=== PATIENT | male | born 1980 | race Two or more races ===

== ENCOUNTER → 2018-09-04 | Outpatient (CLI) | payer OTHER ==
--- NOTE | 2018-09-04 18:01 | REP ---
TRIPLE PHASE BONE SCAN, LOWER LEGS: Following the intravenous administration of 21.7 millicuries of Technetium 99M MDP, patient's who body was imaged in the flow phase in the anterior and posterior projections, showing symmetrical blood flow. Immediate blood pool and 4 hour delayed images are performed of the lower legs in various projections. Small focal increased blood pooling and increased delayed activity is seen at the posterior margin of the right calcaneus. I suspect this represents mild stress related changes at the insertion of the Achilles tendon. There is mild linear uptake in the tibial cortex bilaterally in a fairly symmetrical pattern suggesting bilateral stress periostitis or broderick splints. No focal stress fracture is seen. IMPRESSION: Linear increased uptake along the tibial shafts bilaterally suggests stress periositis. Focal increased uptake in the posterior margin of the right calcaneus suggests stress related changes at the insertion of the Achilles tendon. No evidence of stress fracture. Electronically Signed by Austin Lou MD 09/05/2018 12:27 P
== END ==
LOC: M RAD 08:42
PROVIDERS: ATTEND Physical Therapist
DX: M79.662 Pain in left lower leg (principal)
CPT/HCPCS: 78315; A9503

== ENCOUNTER 2018-12-31 20:23 | Emergency (ER) | payer OTHER ==
[~2018-12-31] VITALS: Ht 182.9 cm; Wt 104.5 kg
[2018-12-31 20:23] VITALS: BP 134/81
[2018-12-31] MEDS ORDERED: BENZONATATE 100 MG CAP PO ONE (21:15)
[2018-12-31] MEDS ORDERED: ZITHTAB PO (21:53)
[2018-12-31] MEDS ORDERED: BENZ200C70 PO (21:53)
[2018-12-31] MEDS ORDERED: NAPR-837 PO (21:57)
[2018-12-31] MEDS ORDERED: AZITHROMYCIN 250 MG TAB PO ONE (22:00)
--- NOTE | 2019-01-01 08:09 | REP ---
Chest x-ray: Two views. History: Cough and fever . Comparison study: No comparison study . Findings: The lungs are well inflated and free of infiltrate. The pleural angles are sharp. The heart size is normal. Pulmonary vasculature is not increased. No significant bony abnormality is seen. Impression: Negative chest x-ray. Electronically Signed by Erick Daley MD 01/01/2019 08:00 A
== END 2018-12-31 22:02 | disposition home or self-care (01) ==
LOC: M ED 20:23
DX: J20.9 Acute bronchitis, unspecified (principal); Z88.0 Allergy status to penicillin

== ENCOUNTER 2020-03-25 16:25 | Emergency (ER) | payer OTHER ==
[~2020-03-25] VITALS: Ht 182.9 cm; Wt 119.0 kg
[~2020-03-25 16:25] MED LIST: BENZ200C70 PO; NAPR-837 PO; ZITHTAB PO
[2020-03-25 16:26] VITALS: BP 133/87
[2020-03-25] MEDS ORDERED: SYNT150T PO (16:36)
[2020-03-25] MEDS ORDERED: ATOR1TAB21 PO (16:36)
[2020-03-25] MEDS ORDERED: DERMABOND TOPICAL SKIN ADHESIVE TOP ONE (17:15)
[2020-03-25] MEDS ORDERED: LIDOCAINE W/EPINEPHRINE 1% 20ML VIAL As Ordered ONE (17:18)
[2020-03-25] MEDS ORDERED: LIDOCAINE W/EPINEPHRINE 1% 20ML VIAL SC ONE (17:30)
== END 2020-03-25 17:39 | disposition home or self-care (01) ==
LOC: M ED 16:25
DX: S81.812A Laceration without foreign body, left lower leg, initial encounter (principal); W27.0XXA Contact with workbench tool, initial encounter; Y92.099 Unspecified place in other non-institutional residence as the place of occurrence of the external cause; Y93.9 Activity, unspecified; Y99.9 Unspecified external cause status; E03.9 Hypothyroidism, unspecified; Z79.899 Other long term (current) drug therapy; Z88.0 Allergy status to penicillin; Z91.012 Allergy to eggs

== ENCOUNTER 2020-05-09 08:30 | Day surgery (SDC) | payer OTHER ==
[~2020-05-09] VITALS: Ht 182.9 cm; Wt 121.1 kg
[~2020-05-09 08:30] MED LIST changes: +ATOR1TAB21 PO; +LEVO250T12 PO; +NS 1,000 ML IV ONE; +SYNT125T PO; +SYNT150T PO
[2020-05-09] MEDS ORDERED: propofoL 200 MG/20 ML VIAL As Ordered ONE ×2 (10:11→10:12)
[2020-05-09] MEDS ORDERED: LIDOCAINE 2% 100MG/5ML SDV (FOR ANES.) As Ordered ONE (10:12)
--- NOTE | 2020-05-09 10:16 | ROOR ---
Patient Name: Juan Daniel Boss Procedure Date: 05/09/2020 9:56 AM Date of : 1980 Age: 39 Room: [facility] Gender: Male Note Status: Finalized Procedure: Total Colonoscopy to Cecum Indications: Screening in patient at increased risk: Colorectal cancer in father before age 60 Providers: Kip Pelayo MD Referring MD: DOUG GAVIRIA MD Requesting Provider: Medicines: Monitored Anesthesia Care Complications: No immediate complications. Procedure: Pre-Anesthesia Assessment: - The heart rate, respiratory rate, oxygen saturations, blood pressure, adequacy of pulmonary ventilation, and response to care were monitored throughout the procedure. The Colonoscope was introduced through the anus and advanced to the cecum, identified by appendiceal orifice and ileocecal valve. The colonoscopy was performed without difficulty. The patient tolerated the procedure well. The quality of the bowel preparation was good. Findings: The perianal and digital rectal examinations were normal. Non-bleeding internal hemorrhoids were found during retroflexion. The hemorrhoids were small and Grade I (internal hemorrhoids that do not prolapse). No other significant abnormalities were identified in a careful examination of the remainder of the colon. The exam was otherwise without abnormality on direct and retroflexion views. Impression: - Non-bleeding internal hemorrhoids. - The examination was otherwise normal on direct and retroflexion views. - No specimens collected. - The exam was otherwise normal to the cecum. Recommendation: - Patient has a contact number available for emergencies. The signs and symptoms of potential delayed complications were discussed with the patient. Return to normal activities tomorrow. Written discharge instructions were provided to the patient. - High fiber diet. - Discharge patient to home. - Continue present medications. - Repeat colonoscopy in 5 years for screening purposes. - Return to referring physician. - The findings and recommendations were discussed with the patient. Procedure Code(s): --- Professional --- G0105, Colorectal cancer screening; colonoscopy on individual at high risk Diagnosis Code(s): --- Professional --- Z80.0, Family history of malignant neoplasm of digestive organs K64.0, First degree hemorrhoids CPT copyright 2019 [employer]. All rights reserved. The codes documented in this report are preliminary and upon doctor's assistant review may be revised to meet current compliance requirements. Kip Pelayo MD Kip Pelayo MD 05/09/2020 10:16:41 AM Electronically signed by Kip Pelayo MD Number of Addenda: 0 Note Initiated On: 05/09/2020 9:56 AM Estimated Blood Loss: Estimated blood loss: none.
[2020-05-09 10:40] VITALS: BP 125/69
== END 2020-05-09 11:25 | disposition home or self-care (01) ==
LOC: M OPP 08:30
PROVIDERS: ATTEND Internal Medicine Gastroenterology
DX: Z12.11 Encounter for screening for malignant neoplasm of colon (principal); Z80.0 Family history of malignant neoplasm of digestive organs; K64.0 First degree hemorrhoids; E03.9 Hypothyroidism, unspecified; F17.220 Nicotine dependence, chewing tobacco, uncomplicated; Z88.0 Allergy status to penicillin; Z88.1 Allergy status to other antibiotic agents; Z91.012 Allergy to eggs; Z91.041 Radiographic dye allergy status; Z79.899 Other long term (current) drug therapy

== ENCOUNTER 2020-07-27 19:19 | Emergency (ER) | payer OTHER ==
[~2020-07-27] VITALS: Ht 182.9 cm; Wt 120.4 kg
[~2020-07-27 19:19] MED LIST changes: -NS 1,000 ML IV ONE
[2020-07-27 19:20] VITALS: BP 140/86
[2020-07-27] MEDS ORDERED: IBUP200T43 PO (19:28)
[2020-07-27] MEDS ORDERED: PERC5TAB12 PO (20:20)
[2020-07-27] MEDS ORDERED: CEPHALEXIN 500 MG CAP PO ONE (20:20)
[2020-07-27] MEDS ORDERED: OXYCODONE/APAP 5MG/325MG(BULK FOR ED) 1 TABLET PO ONE (20:20)
[2020-07-27] MEDS ORDERED: CEPH500T PO (20:20)
[2020-07-27] MEDS ORDERED: ACET1TAB16 PO (20:34)
--- NOTE | 2020-07-27 21:10 | REPVR ---
PROCEDURE INFORMATION: Exam: XR Right Toe(s) Exam date and time: 07/27/2020 8:02 PM Age: 40 years old Clinical indication: Pain; Toes; Right; Additional info: Dropped log on great toe TECHNIQUE: Imaging protocol: XR Right toes. Views: Minimum 2 views. COMPARISON: No relevant prior studies available. FINDINGS: Bones/joints: Comminuted fracture involving the distal tuft of the great toe with very slight displacement of fragments. Soft tissues: Soft tissue swelling of the great toe. IMPRESSION: 1. Comminuted fracturing of the distal tuft of the great toe with very slight displacement of fragments. 2. Soft tissue swelling of the great toe. Electronically signed by: Darrion Cordero On 07/27/2020 21:09:58 PM
== END 2020-07-27 21:04 | disposition home or self-care (01) ==
LOC: M ED 19:19
DX: S92.421B Displaced fracture of distal phalanx of right great toe, initial encounter for open fracture (principal); W20.0XXA Struck by falling object in cave-in, initial encounter; Y92.009 Unspecified place in unspecified non-institutional (private) residence as the place of occurrence of the external cause; Y93.89 Activity, other specified; Y99.8 Other external cause status

== ENCOUNTER 2020-08-06 13:49 | Day surgery (SDC) | payer OTHER ==
[~2020-08-06] VITALS: Ht 182.9 cm; Wt 118.4 kg
[2020-08-06] MEDS ORDERED: BUPIVACAINE/EPIN 0.5% 30 ML VIAL As Ordered ONE (15:08)
[2020-08-06] MEDS ORDERED: ONDANSETRON 4MG/2ML VIAL As Ordered ONE (15:12)
[2020-08-06] MEDS ORDERED: fentaNYL 100 MCG/2 ML INJECTION (J3010) As Ordered ONE (15:12)
[2020-08-06] MEDS ORDERED: LIDOCAINE 2% 100MG/5ML SDV (FOR ANES.) As Ordered ONE (15:12)
[2020-08-06] MEDS ORDERED: MIDAZOLAM INJ 2MG/2ML VIAL (J2250 PER 1MG) As Ordered ONE (15:12)
[2020-08-06] MEDS ORDERED: propofoL 200 MG/20 ML VIAL As Ordered ONE (15:12)
[2020-08-06] MEDS ORDERED: ACETAMINOPHEN 1000MG 100ML IV BTL (OFIRMEV) (J0131 PER 10MG) As Ordered ONE (15:12)
[2020-08-06] MEDS ORDERED: dexameTHASONE 4 MG/ML 1ML VIAL (J1100 PER 1MG) As Ordered ONE (15:12)
[2020-08-06] MEDS ORDERED: KETOROLAC 60MG 2ML VIAL As Ordered ONE (15:12)
[2020-08-06] MEDS ORDERED: LIDOCAINE 5% OINT 30GM TUBE As Ordered ONE (15:20)
[2020-08-06] MEDS ORDERED: BUPIVACAINE HCL 0.5% 10ML VIAL As Ordered ONE (15:36)
[2020-08-06] MEDS ORDERED: LIDOCAINE 1% MDV 20ML VIAL As Ordered ONE (15:36)
[2020-08-06] MEDS ORDERED: oxyCODONE 5MG TAB PO PRN (17:55)
[2020-08-06] MEDS ORDERED: LR 1,000 ML IV SCH ×2 (17:55)
[2020-08-06] MEDS ORDERED: ONDANSETRON 4MG/2ML VIAL IV PRN (17:55)
[2020-08-06] MEDS ORDERED: CIPROFLOXACIN 500MG TABLET PO ONE (18:00)
--- NOTE | 2020-08-06 18:05 | ROOPDOC ---
[facility] Report Of Operation Report of Operation DATE OF PROCEDURE: 08/06/20 PREPROCEDURE DIAGNOSES: Right first toe open fracture under nailbed: Distal tuft of phalanx fracture approximately 10 days old POSTPROCEDURE DIAGNOSES: As above, with disruption of nail bed PROCEDURE: Ring block applied to right first great toe at the level just distal to the metatarsal head Removal of right first toe nail Irrigation and debridement of open fracture Distal phalanx right first toe SURGEON: Kiran Coulter MD MUSIC SUPERVISOR: None ANESTHESIA: Sedation with ring block, local anesthetic ESTIMATED BLOOD LOSS: Approximately less than 5 mL COMPLICATIONS: 0 Known complications REMARKS: Of note, this open fracture of the right first toe Nailbed was referred by the emergency room to the clinic know on urgently. Subsequently the clinic appointment was approximately 10 days after the injury. Notably, the patient had a reaction to the antibiotic that was prescribed for him and he had not been taking antibiotics. Also of note, the patient had gone swimming yesterday after the bleeding from the nail bed proximally had ceased. All of these factors, but the patient had an increased risk for infection. DESCRIPTION OF PROCEDURE: The patient was brought into the operating room and after a surgical pause and surgical safety checklist was completed, sedation was initiated. The right foot was scrubbed with alcohol 2 and hydrogen peroxide followed by a ring block that was administered by myself. Approximately 9 mL of 1% lidocaine mixed with 0.5% Marcaine was injected in a ring block manner. The right foot was then scrubbed with Betadine soap and then Betadine paint. A sterile prep and drape was then applied. A Esmarch wrap was used as a tourniquet. This was applied, and a Ogilvie was then used to free up the edges of the nailbed. This started with the cuticle region and along the sides. The Ogilvie was then placed underneath the nailbed, which easily was elevated. The nailbed was then removed. Unhealthy regions of the cuticle tissue were then removed with a small snap. The Ogilvie was used to probe around the nailbed. There is no evidence of tunneling or otherwise abscess collection. Noted that there was an approximate 1.5 cm laceration of the nailbed down to the distal phalanx. The bone fragments were palpable at the site of the fracture. An 18-gauge syringe with normal sterile saline was introduced into this laceration in the nailbed and several syringes full of normal sterile saline were used to irrigate out the fracture site. There is no evidence of gross contamination or otherwise. Further irrigation occurred with the bulb syringe. Once the wound had been thoroughly irrigated, a 5. 0 Monocryl absorbable suture was used to approximate the nailbed edges together. Dermabond skin adhesive was applied to the laceration. The wound was painted with Betadine, followed by the application of a Xeroform, light gauze over the nailbed and surrounding. The Esmarch tourniquet was removed and there was no significant bleeding noted 4 x 4's were loosely placed in a circumferential manner. This was then loosely wrapped with Coban to secure the dressing. The patient was then taken to the recovery room in stable condition with no known complications. The patient will have one dose of the ciprofloxacin oral antibiotics in hospital due to his multiple allergies to antibiotics. He will also have oxycodone for p ain medication as well as senna for constipation. He was provided with instructions for dressing changes to be done twice daily and the appropriate number of supplies to bring him until Tuesday when he will be seen in the clinic for reassessment of the wound. I have provided him with the office numbers well. If he has any concerns. The patient will be discharged home when able. KIRAN COULTER MD August 06, 2020 18:05
[2020-08-06 20:30] VITALS: BP 126/58
== END 2020-08-06 20:38 | disposition home or self-care (01) ==
LOC: M SDC 13:49
PROVIDERS: ATTEND Orthopaedic Surgery Adult Reconstructive Orthopaedic Surgery
DX: S91.201A Unspecified open wound of right great toe with damage to nail, initial encounter (principal); S92.424B Nondisplaced fracture of distal phalanx of right great toe, initial encounter for open fracture; W22.8XXA Striking against or struck by other objects, initial encounter; Y92.89 Other specified places as the place of occurrence of the external cause; E03.9 Hypothyroidism, unspecified; Z85.47 Personal history of malignant neoplasm of testis; Z79.899 Other long term (current) drug therapy; Z91.041 Radiographic dye allergy status; Z88.0 Allergy status to penicillin; Z91.012 Allergy to eggs; Z91.018 Allergy to other foods
CPT/HCPCS: 11760; 64450; 73660; J0131; J1100; J1885; J2250; J2405; J3010; U0002

== ENCOUNTER → 2020-08-06 | Outpatient (CLI) | payer OTHER ==
[~2020-08-06] MED LIST changes: +ACET1TAB16 PO; +CEPH500T PO; +IBUP200T43 PO; +PERC5TAB12 PO
--- NOTE | 2020-08-06 09:27 | REP ---
INDICATION: F/U FX. COMPARISON: 05/09/2020 TECHNIQUE: AP, lateral, bilateral oblique views of the right 1st toe. FINDINGS: Nondisplaced crush injury to the terminal tuft of the distal phalanx is again noted and essentially unchanged. IMPRESSION: Relatively stable appearance to the distal phalanx fracture. <Electronically signed by Josafat Cano > 08/06/20 0951
== END ==
LOC: M SOG 09:02
PROVIDERS: ATTEND Orthopaedic Surgery Adult Reconstructive Orthopaedic Surgery
DX: M79.674 Pain in right toe(s) (principal)

== ENCOUNTER → 2020-08-14 | Outpatient (CLI) | payer OTHER ==
[2020-08-14 12:02] LABS: FREE T4 1.66 NG/DL (0.76-1.46); THYROID STIMULATING HORMONE < 0.005 uIU/ML (0.358-3.740)
== END ==
LOC: M PLALAB 08:56
PROVIDERS: ATTEND Nurse Practitioner Family
DX: E06.3 Autoimmune thyroiditis (principal)

== ENCOUNTER → 2020-09-08 | Outpatient (CLI) | payer OTHER ==
--- NOTE | 2020-09-08 22:06 | REP ---
INDICATION: F/U FX. COMPARISON: 08/06/2020 TECHNIQUE: AP, lateral, bilateral oblique views of the right 1st toe. FINDINGS: Fracture at the terminal tuft/tip of the distal phalanx is identified with callus formation consistent with healing process. IMPRESSION: Healing fracture. <Electronically signed by Josafat Cano > 09/08/20 [id number]
== END ==
LOC: M SOG 08:04
PROVIDERS: ATTEND Orthopaedic Surgery Adult Reconstructive Orthopaedic Surgery
DX: S92.421D Displaced fracture of distal phalanx of right great toe, subsequent encounter for fracture with routine healing (principal); W18.30XD Fall on same level, unspecified, subsequent encounter; Y92.009 Unspecified place in unspecified non-institutional (private) residence as the place of occurrence of the external cause

== ENCOUNTER → 2020-11-13 | Outpatient (CLI) | payer OTHER ==
[2020-11-13 12:05] LABS: FREE T4 1.07 NG/DL (0.76-1.46); THYROID STIMULATING HORMONE 0.061 uIU/ML (0.358-3.740)
== END ==
LOC: M PLALAB 08:19
PROVIDERS: ATTEND Internal Medicine Endocrinology, Diabetes & Metabolism
DX: E06.3 Autoimmune thyroiditis (principal)

== ENCOUNTER → 2020-12-11 | Outpatient (CLI) | payer OTHER ==
--- NOTE | 2020-12-11 11:18 | REP ---
INDICATION: PAIN IN RT TOE. COMPARISON: Comparison right great toe radiographs are from September 08, 2020. TECHNIQUE: AP and lateral views of the right great toe. FINDINGS: AP and lateral views of the right great toe demonstrate healing of the crush-type fracture fragments in the distal tuft of the great toe distal phalanx. There is minimal spurring at the 1st MTP joint. No acute bony abnormality. IMPRESSION: Distal tuft great toe fracture demonstrates healing. <Electronically signed by Panchito Daley > 12/11/20 111
== END ==
LOC: M SOG 10:46
PROVIDERS: ATTEND Orthopaedic Surgery Adult Reconstructive Orthopaedic Surgery
DX: M79.674 Pain in right toe(s) (principal)

== ENCOUNTER 2021-03-05 19:59 | Emergency (ER) | payer OTHER ==
[~2021-03-05] VITALS: Ht 182.9 cm; Wt 122.8 kg
[2021-03-05 20:00] VITALS: BP 161/79
--- OUTSIDE RECORDS SUMMARY | 2021-03-05 20:07 | CCD | Continuity of Care Document ---
Author Author Juan Daniel LIANG DPCrystal Organization Unknown Address [address] [place] [address], [address] [place] [address] Phone [phone] Care Team Providers Care Stratigrapher Name Role Phone Shen Heredia, [facility] AUTM [phone] Problems Active Problems Provider Date Ingrowing nail Tu Liang DPM Onset: 12/29/2020 Pain in limb Tu Liang DPM Onset: 12/29/2020 Social History Type Date Description Comments Sex Unknown ETOH Use Denies alcohol use Tobacco Use Start: Unknown Patient has never smoked Allergies and adverse reactions Active Allergies Criticality Reaction | Severity Comments Date Amoxicillin Unable to assess criticality 12/23/2020 Penicillins Unable to assess criticality anaphylaxis 12/23/2020 Mushrooms Unable to assess criticality 12/23/2020 Egg Whites Unable to assess criticality 12/23/2020 Medications Active Medications SIG Qnty Indications Ordering Provide r Date Qaankpyp-Wsknqlhtu-TM 1% Solution apply one drop to base of nail after betadine soaks as directed 10units Tu Liang DPM 12/30/2020 Synthroid Unknown Immunizations Description No Information Available Vital Signs Date Vital Result Comment 12/24/2020 8:11am Height 72 inches 6'0" Weight 265.00 lb BP Systolic 140 mmHg BP Diastolic 86 mmHg Heart Rate 105 /min BMI (Body Mass Index) 35.9 kg/m2 Results Description No Information Available Procedures Date Code Description Status 12/30/2020 02861 Excise Nail Bed & Matrix Complet ed 12/24/2020 18902 Office/Outpatient New Low MDM 30 -44 Minutes Completed Medical Devices Description No Information Available Encounters Type Date Location Provider Dx Diagnosis Office Visit 12/24/2020 2:15p [facility] Tu Liang DPM L60.0 Ingrowing nail M79.674 Pain in right toe(s) Assessments Date Code Description Provider 12/30/2020 L60.0 Ingrowing nail Tu Liang, ALVARO 12/30/2020 M79.674 Pain in right toe(s) Tu comer DPM 12/24/2020 L60.0 Ingrowing nail Tu Liang, ALVARO 12/24/2020 M79.674 Pain in right toe(s) Tu comer DPM Plan of Treatment No Information Available Functional Status Description No Information Available Mental Status Description No Information Available Referrals Refer to Dr Reason for Referral Status Appt Date Tu Liang DPM OPEN FX OF DISTAL PHALANX OF GREAT TOE/ OCCURE JULY 27, 2020 Created [address] [place] [id number] [phone]
--- OUTSIDE RECORDS SUMMARY | 2021-03-05 20:07 | CCD | Continuity of Care Document ---
Author Author Juan Daniel GONZALEZ DPCrystal Organization Unknown Address [address] [place] [address], [address] [place] [address] Phone [phone] Care Team Providers Care Expediter Service Order Name Role Phone Shen Yan, [employer] AUTM [phone] Problems Active Problems Provider Date Ingrowing nail Tu Gonzalez DPM Onset: 12/29/2020 Pain in limb Tu Gonzalez DPM Onset: 12/29/2020 Social History Type Date [...] SIG Qnty Indications Ordering Provide r Date Synthroid Unknown Immunizations Description No Information Available Vital Signs Date Vital Result Comment 12/24/2020 8:11am Height 72 inches 6'0" Weight 265.00 lb BP Systolic 140 mmHg BP Diastolic 86 mmHg Heart Rate 105 /min BMI (Body Mass Index) 35.9 kg/m2 Results Description No Information Available Procedures Date Code Description Status 12/24/2020 70878 Office/Outpatient New Low MDM 30 -44 Minutes Completed Medical Devices Description No Information Available Encounters Type Date Location Provider Dx Diagnosis Office Visit 12/24/2020 2:15p [place] Tu Gonzalez DPM L60.0 Ingrowing nail M79.674 Pain in right toe(s) Assessments Date Code Description Provider 12/24/2020 L60.0 Ingrowing nail Tu Gonzalez DPM 12/24/2020 M79.674 Pain in right toe(s) Tu comer DPM Plan of Treatment Future Appointment(s):* 12/30/2020 10:45 am - Tu Gonzalez DPM at [facility] Functional Status Description No Information Available Mental Status Description No Information Available Referrals Refer to Dr Reason for Referral Status Appt Date Tu Gonzalez DPM OPEN FX OF DISTAL PHALANX OF GREAT TOE/ OCCURE JULY 27, 2020 [address] [address] [phone]
--- OUTSIDE RECORDS SUMMARY | 2021-03-05 20:07 | CCD | Continuity of Care Document ---
Author Author Juan Daniel COULTER MD Organization Unknown Address [id number] [place] [address], [facility] [place] [address] Phone [phone] Care Team Providers Care Safety Intern Name Role Phone Salvador Black AUTM [phone] AUTM Unavailable Problems Description No Information Available Social History Type Date Description Comments Sex Unknown ETOH Use Denies alcohol use Tobacco Use Start: Unknown Patient has never smoked Recreational Drug Use Denies Drug Use Smoking Status Reviewed: 09/08/20 Patient has never smoked Enjoy Exercising Enjoys exercising Exercise Type/Frequency Exercises regularly Allergies, Adverse Reactions, Alerts Active Allergies Criticality Reaction | Severity Comments Date Egg Whites Unable to assess criticality anaphylaxis 08/06/2020 Penicillin V Unable to assess criticality anaphylaxis 08/06/2020 Amoxicillin Unable to assess criticality Hives, anaphylaxis 08/06/2020 Mushrooms Unable to assess criticality anaphylaxis 08/06/2020 Medications Active Medications SIG Qnty Indications Ordering Provide r Date Synthroid 125mcg Tablets 1 tab by mouth daily Unknown Immunizations Description No Information Available Vital Signs Date Vital Result Comment 09/08/2020 8:24am Body Temperature 97.8 F Height 72 inches 6'0" Weight 240.00 lb BMI (Body Mass Index) 32.5 kg/m2 [place] Body Weight 178 lb Weight 108.864 kg BSA (Body Surface Area) 2.30 m2 08/18/2020 9:08am BP Systolic 118 mmHg BP Diastolic 84 mmHg Heart Rate 84 /min O2 % BldC Oximetry 95 % Respiratory Rate 16 /min Body Temperature 98.7 F Height 72 inches 6'0" [place] Body Weight 178 lb Results Description No Information Available Procedures Date Code Description Status 12/11/2020 57769 Office/Outpatient Established Lo w MDM 20-29 Min Completed 09/08/2020 48798 Office/Outpatient Established Lo w MDM 20-29 Min Completed 08/18/2020 68323 Office/Outpatient Established Lo w MDM 20-29 Min Completed 08/06/2020 19737 Office/Outpatient New Moderate M DM 45-59 Minutes Completed 08/06/2020 68494 Repair Nail Bed Completed 08/06/2020 28457 Debridement FX/Dislocation; Skin , Subcutan, Muscle & Bone Completed Medical Devices Description No Information Available Encounters Type Date Location Provider Dx Diagnosis Office Visit 12/11/2020 11:00a [facility] Kiran Coulter MD S92.421D Disp fx of dist phalanx of r great toe, 7thD M13.871 Other specified arthritis, r ight ankle and foot Office Visit 09/08/2020 8:00a [facility] Kiran Coulter MD S92.421D Disp fx of dist phalanx of r great toe, 7thD Z48.02 Encounter for removal of sut ures Office Visit 08/18/2020 9:30a [facility] Kiran Coulter MD S92.421D Disp fx of dist phalanx of r great toe, 7thD Office Visit 08/11/2020 11:30a [facility] Kiran Coulter MD S92.421D Disp fx of dist phalanx of r great toe, 7thD Office Visit 08/06/2020 9:00a [facility] Kiran Coulter MD S91.201A Unsp open wound of right great toe w damage to nail, init S92.421A Disp fx of distal phalanx of right great toe, init W20.8xxA Oth cause of strike by throw n, projected or fall obj, init Assessments Date Code Description Provider 12/11/2020 S92.421D Displaced fracture o f distal phalanx of right great toe, subsequent encounter for fracture with routine healing Kiran Coulter MD 12/11/2020 M13.871 Osteoarthritis of first metatars ophalangeal joint Kiran Coulter MD 09/08/2020 S92.421D Displaced fracture o f distal phalanx of right great toe, subsequent encounter for fracture with routine healing Kiran Coulter MD 09/08/2020 Z48.02 Encounter for removal of sutures Kiran Coulter MD 08/18/2020 S92.421D Displaced fracture o f distal phalanx of right great toe, subsequent encounter for fracture with routine healing Kiran Coulter MD 08/11/2020 S92.421D Displaced fracture o f distal phalanx of right great toe, subsequent encounter for fracture with routine healing Kiran Coulter MD 08/06/2020 S92.421B Displaced fracture o f distal phalanx of right great toe, initial encounter for open fracture Kiran Coulter MD 08/06/2020 S91.201A Unspecified open wou nd of right great toe with damage to nail, initial encounter Kiran Coulter MD 08/06/2020 S92.421A Displaced fracture o f distal phalanx of right great toe, initial encounter for closed fracture Kiran Coulter MD 08/06/2020 W20.8xxA Other cause of strik e by thrown, projected or falling object, initial encounter Kiran Coulter MD Plan of Treatment 12/11/2020 - Kiran Coulter MD* S92.421D Displaced fracture of distal phalanx of right great toe, subsequent encounter for fracture with routine healing* Comments:* The fracture site appears to be healing well with signs of consolidation of the tuft fracture on x-ray imaging. The patient still has some pain and discomfort here. I believe that this is more associated with the irregular nail that has grown in. We have had significant issues in terms of referring him to the preferred health clinician. Unfortunately the process for referral required his primary care to make the referral and then this was subsequently sent to the wrong health clinician. We have contacted the office and the patient has been rereferred to Dr. Martinez which was my request. Hopefully will hear back within the next day or so about his referral. At this point the patient will contact the office once he has seen the health clinician to let us know what the plan is. 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 This is not something of significant concern at this time and he will be referred to the health clinician who can also evaluate him for this discomfort. There is still good maintenance of the joint space here. Functional Status Description No Information Available Mental Status Description No Information Available Referrals Refer to Dr Reason for Referral Status Appt Date Oziel Gonzalez DPM Right great toe: 6 weeks s/p open distal phalanx fracture with nail bed repair and removal of nail. Tender nail bed at leading edge of ingrowing nail. Please assess. Sent [address] [place] [address] [phone]
--- OUTSIDE RECORDS SUMMARY | 2021-03-05 20:07 | CCD | Continuity of Care Document ---
Author Author Juan Daniel COULTER MD Organization Unknown Address [id number] [place] [address], [facility] [place] [address] Phone [phone] Care Team Providers Care Continuity Reader Name Role Phone Salvador Black AUTM [phone] AUTM Unavailable Problems Description No Information Available [...] lb BMI (Body Mass Index) 32.5 kg/m2 [place] Body Weight 178 lb Weight 108.864 kg BSA (Body Surface Area) 2.30 m2 08/18/2020 9:08am BP Systolic 118 mmHg BP Diastolic 84 mmHg Heart Rate 84 /min O2 % BldC Oximetry 95 % Respiratory Rate 16 /min Body Temperature 98.7 F Height 72 inches 6'0" [place] Body Weight 178 lb Results Description No Information Available Procedures Date Code Description Status 09/08/2020 95961 Office/Outpatient Established Lo w MDM 20-29 Min Completed 08/18/2020 39316 Office/Outpatient Established Lo w MDM 20-29 Min Completed 08/06/2020 88897 Office/Outpatient New Moderate M DM 45-59 Minutes Completed 08/06/2020 11117 Repair Nail Bed Completed 08/06/2020 36849 Debridement FX/Dislocation; Skin , Subcutan, Muscle & Bone Completed Medical Devices Description No Information Available Encounters Type Date Location Provider Dx Diagnosis Office Visit 09/08/2020 8:00a [facility] Kiran Coulter MD S92.421D Disp fx of dist phalanx of r great toe, 7thD Z48.02 Encounter for removal of sut ures Office Visit 08/18/2020 9:30a [facility] Kiran Coulter MD S92.421D Disp fx of dist phalanx of r great toe, 7thD Office Visit 08/11/2020 11:30a [facility] Kiran Coulter MD S92.421D Disp fx of dist phalanx of r great toe, 7thD Office Visit 08/06/2020 9:00a [facility] Kiran Coulter MD S91.201A Unsp open [...] terms of referring him to the preferred financial business analyst. Unfortunately the process for referral required his primary care to make the referral and then this was subsequently sent to the wrong financial business analyst. We have contacted the office and the patient has been rereferred to Dr. Martinez which was my request. Hopefully will hear back within the next day or so about his referral. At this point the patient will contact the office once he has seen the financial business analyst to let us know what the plan is. 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 This is not something of significant concern at this time and he will be referred to the financial business analyst who can also evaluate him for this discomfort. There is still good maintenance of the joint space here. Functional Status Description No Information Available Mental Status Description No Information Available Referrals Refer to Reason for Referral Status Appt Date Oziel Gonzalez DPM Right great toe: 6 weeks s/p open distal phalanx fracture with nail bed repair and removal of nail. Tender nail bed at leading edge of ingrowing nail. Please assess. Sent [address] [address] [phone]
--- OUTSIDE RECORDS SUMMARY | 2021-03-05 20:07 | CCD ---
Author Author [facility] Organization [facility] Address Unknown Phone Unavailable Care Team Providers Care Veneer Department Manager Name Role Phone Lupe Pelayo MD Unavailable Unavailable Lupe Pelayo MD Unavailable Unavailable Lupe Pelayo MD Unavailable Unavailable Lupe Pelayo MD Unavailable Unavailable Lupe Pelayo MD Unavailable Unavailable Lupe Pelayo MD Unavailable Unavailable Lupe Pelayo MD Unavailable Unavailable Lupe Pelayo MD Unavailable Unavailable Lupe Pelayo MD Unavailable Unavailable Lupe Pelayo MD Unavailable Unavailable Lupe Pelayo MD Unavailable Unavailable Lupe Pelayo MD Unavailable Unavailable Lupe Pelayo MD Unavailable Unavailable Lupe Pelayo MD Unavailable Unavailable Lupe Pelayo MD Unavailable Unavailable Lupe Pelayo MD Unavailable Unavailable Lupe Pelayo MD Unavailable Unavailable Lupe Pelayo MD Unavailable Unavailable Lupe Pelayo MD Unavailable Unavailable Lupe Pelayo MD Unavailable Unavailable Lupe Pelayo MD Unavailable Unavailable Lupe Pelayo MD Unavailable Unavailable Lupe Pelayo MD Unavailable Unavailable Lupe Pelayo MD Unavailable Unavailable Lupe Pelayo MD Unavailable Unavailable Lupe Pelayo MD Unavailable Unavailable Lupe Pelayo MD Unavailable Unavailable Lupe Pelayo MD Unavailable Unavailable Lupe Pelayo MD Unavailable Unavailable Lupe Pelayo MD Unavailable Unavailable Lupe Pelayo MD Unavailable Unavailable Gita, S Kip ARRIAGA Unavailable Unavailable Gita, S Kip ARRIAGA Unavailable Unavailable Gita, S Kip MD Unavailable Unavailable Gita, S Kip ARRIAGA Unavailable Unavailable Gita, S Kip ARRIAGA Unavailable Unavailable Gita, S Kip ARRIAGA Unavailable Unavailable Gita, S Kip ARRIAGA Unavailable Unavailable Gita, S Kip MD Unavailable Unavailable Gita, S Kip MD Unavailable Unavailable Giat, S Kip MD Unavailable Unavailable Gita, S Kip MD Unavailable Unavailable Gita, S Kip MD Unavailable Unavailable Gita, S Kip MD Unavailable Unavailable Gita, S Kip ARRIAGA Unavailable Unavailable Gita, S Kip MD Unavailable Unavailable Gita, S Ikp MD Unavailable Unavailable Gita, S Kip MD Unavailable Unavailable Gita, S Kip MD Unavailable Unavailable Gita, S Kip MD Unavailable Unavailable Gita, S Kip MD Unavailable Unavailable Ward, C Hoa TELEPRINTER INSTALLER Unavailable Unavailable Ward, C Hoa TELEPRINTER INSTALLER Unavailable Unavailable Ward, C Hoa TELEPRINTER INSTALLER Unavailable Unavailable Ward, C Hoa TELEPRINTER INSTALLER Unavailable Unavailable Ward, C Hoa TELEPRINTER INSTALLER Unavailable Unavailable Ward, C Hoa TELEPRINTER INSTALLER Unavailable Unavailable Wadr, C Hoa TELEPRINTER INSTALLER Unavailable Unavailable Ward, C Hoa TELEPRINTER INSTALLER Unavailable Unavailable Ward, C Hoa TELEPRINTER INSTALLER Unavailable Unavailable Ward, C Hoa TELEPRINTER INSTALLER Unavailable Unavailable Ward, C Hoa TELEPRINTER INSTALLER Unavailable Unavailable Ward, C Hoa TELEPRINTER INSTALLER Unavailable Unavailable Ward, C Hoa TELEPRINTER INSTALLER Unavailable Unavailable Ward, C Hoa TELEPRINTER INSTALLER Unavailable Unavailable Ward, C Hoa TELEPRINTER INSTALLER Unavailable Unavailable Ward, C Hoa TELEPRINTER INSTALLER Unavailable Unavailable Ward, C Hoa TELEPRINTER INSTALLER Unavailable Unavailable Ward, C Hoa TELEPRINTER INSTALLER Unavailable Unavailable Ward, C Hoa TELEPRINTER INSTALLER Unavailable Unavailable Ward, C Hoa TELEPRINTER INSTALLER Unavailable Unavailable Ward, C Hoa TELEPRINTER INSTALLER Unavailable Unavailable Ward, C Hoa TELEPRINTER INSTALLER Unavailable Unavailable Ward, C Hoa TELEPRINTER INSTALLER Unavailable Unavailable Ward, C Hoa TELEPRINTER INSTALLER Unavailable Unavailable Ward, C Hoa TELEPRINTER INSTALLER Unavailable Unavailable Ward, C Hoa TELEPRINTER INSTALLER Unavailable Unavailable Ward, C Hoa TELEPRINTER INSTALLER Unavailable Unavailable Ward, C Hoa TELEPRINTER INSTALLER Unavailable Unavailable Ward, C Hoa TELEPRINTER INSTALLER Unavailable Unavailable Ward, C Hoa TELEPRINTER INSTALLER Unavailable Unavailable Nicolette BLACK MD Unavailable Unavailable JUNIOR, B MENDEZ AUTO BRAKE MECHANIC Unavailable Unavailable JUNIOR, B MENDEZ AUTO BRAKE MECHANIC Unavailable Unavailable JUNIOR, B MENDEZ AUTO BRAKE MECHANIC Unavailable Unavailable JUNIOR, B MENDEZ AUTO BRAKE MECHANIC Unavailable Unavailable JUNIOR, B MENDEZ AUTO BRAKE MECHANIC Unavailable Unavailable JUNIOR, B MENDEZ AUTO BRAKE MECHANIC Unavailable Unavailable JUNIOR, B MENDEZ AUTO BRAKE MECHANIC Unavailable Unavailable JUNIOR, B MENDEZ AUTO BRAKE MECHANIC Unavailable Unavailable JUNIOR, B MENDEZ AUTO BRAKE MECHANIC Unavailable Unavailable JUNIOR, B MENDEZ AUTO BRAKE MECHANIC Unavailable Unavailable JUNIOR, B MENDEZ AUTO BRAKE MECHANIC Unavailable Unavailable JUNIOR, B MENDEZ AUTO BRAKE MECHANIC Unavailable Unavailable JUNIOR, B MENDEZ AUTO BRAKE MECHANIC Unavailable Unavailable JUNIOR, B MENDEZ AUTO BRAKE MECHANIC Unavailable Unavailable JUNIOR, B MENDEZ AUTO BRAKE MECHANIC Unavailable Unavailable JUNIOR, B MENDEZ AUTO BRAKE MECHANIC Unavailable Unavailable JUNIOR, B MENDEZ AUTO BRAKE MECHANIC Unavailable Unavailable JUNIOR, B MENDEZ AUTO BRAKE MECHANIC Unavailable Unavailable JUNIOR, B MENDEZ AUTO BRAKE MECHANIC Unavailable Unavailable JUNIOR, B MENDEZ AUTO BRAKE MECHANIC Unavailable Unavailable JUNIOR, B MENDEZ AUTO BRAKE MECHANIC Unavailable Unavailable JUNIOR, B MENDEZ AUTO BRAKE MECHANIC Unavailable Unavailable JUNIOR, B MENDEZ AUTO BRAKE MECHANIC Unavailable Unavailable JUNIOR, B MENDEZ AUTO BRAKE MECHANIC Unavailable Unavailable JUNIOR, B MENDEZ AUTO BRAKE MECHANIC Unavailable Unavailable JUNIOR, B MENDEZ AUTO BRAKE MECHANIC Unavailable Unavailable JUNIOR, B MENDEZ AUTO BRAKE MECHANIC Unavailable Unavailable JUNIOR, B MENDEZ AUTO BRAKE MECHANIC Unavailable Unavailable JUNIOR, B MENDEZ AUTO BRAKE MECHANIC Unavailable Unavailable JUNIOR, B MENDEZ AUTO BRAKE MECHANIC Unavailable Unavailable JUNIOR, B MENDEZ AUTO BRAKE MECHANIC Unavailable Unavailable JUNIOR, B MENDEZ AUTO BRAKE MECHANIC Unavailable Unavailable JUNIOR, B MENDEZ AUTO BRAKE MECHANIC Unavailable Unavailable JUNIOR, B MENDEZ AUTO BRAKE MECHANIC Unavailable Unavailable JUNIOR, B MENDEZ AUTO BRAKE MECHANIC Unavailable Unavailable JUNIOR, B MENDEZ AUTO BRAKE MECHANIC Unavailable Unavailable JUNIOR, B MENDEZ AUTO BRAKE MECHANIC Unavailable Unavailable JUNIOR, B MENDEZ AUTO BRAKE MECHANIC Unavailable Unavailable JUNIOR, B MENDEZ AUTO BRAKE MECHANIC Unavailable Unavailable JUNIOR, B MENDEZ AUTO BRAKE MECHANIC Unavailable Unavailable JUNIOR, B MENDEZ AUTO BRAKE MECHANIC Unavailable Unavailable JUNIOR, B MENDEZ AUTO BRAKE MECHANIC Unavailable Unavailable JUNIOR, B MENDEZ AUTO BRAKE MECHANIC Unavailable Unavailable JUNIOR, B MENDEZ AUTO BRAKE MECHANIC Unavailable Unavailable JUNIOR, B MENDEZ AUTO BRAKE MECHANIC Unavailable Unavailable JUNIOR, B MENDEZ AUTO BRAKE MECHANIC Unavailable Unavailable JUNIOR, B MENDEZ AUTO BRAKE MECHANIC Unavailable Unavailable JUNIOR, B MENDEZ AUTO BRAKE MECHANIC Unavailable Unavailable JUNIOR, B MENDEZ AUTO BRAKE MECHANIC Unavailable Unavailable JUNIOR, B MENDEZ AUTO BRAKE MECHANIC Unavailable Unavailable JUNIOR, B MENDEZ AUTO BRAKE MECHANIC Unavailable Unavailable JUNIOR, B MENDEZ AUTO BRAKE MECHANIC Unavailable Unavailable JUNIOR, B MENDEZ AUTO BRAKE MECHANIC Unavailable Unavailable JUNIOR, B MENDEZ AUTO BRAKE MECHANIC Unavailable Unavailable JUNIOR, B MENDEZ AUTO BRAKE MECHANIC Unavailable Unavailable JUNIOR, B MENDEZ AUTO BRAKE MECHANIC Unavailable Unavailable JUNIOR, B MENDEZ AUTO BRAKE MECHANIC Unavailable Unavailable JUNIOR, B MENDEZ AUTO BRAKE MECHANIC Unavailable Unavailable JUNIOR, B MENDEZ AUTO BRAKE MECHANIC Unavailable Unavailable JUNIOR, B MENDEZ AUTO BRAKE MECHANIC Unavailable Unavailable JUNIOR, B MENDEZ AUTO BRAKE MECHANIC Unavailable Unavailable JUNIOR, B MENDEZ AUTO BRAKE MECHANIC Unavailable Unavailable MAJAK, R MARCO A DPM Unavailable Unavailable MAJAK, R MARCO A DPM Unavailable Unavailable MAJAK, R MARCO A DPM Unavailable Unavailable MAJAK, R MARCO A DPM Unavailable Unavailable MAJAK, R MARCO A DPM Unavailable Unavailable MAJAK, R MARCO A DPM Unavailable Unavailable MAJAK, R MARCO A DPM Unavailable Unavailable MAJAK, R MARCO A DPM Unavailable Unavailable MAJAK, R MARCO A DPM Unavailable Unavailable MAJAK, R MARCO A DPM Unavailable Unavailable MAJAK, R MARCO A DPM Unavailable Unavailable MAJAK, R MARCO A DPM Unavailable Unavailable MAJAK, R MARCO A DPM Unavailable Unavailable MAJAK, R MARCO A DPM Unavailable Unavailable MAJAK, R MARCO A DPM Unavailable Unavailable MAJAK, R MARCO A DPM Unavailable Unavailable MAJAK, R MARCO A DPM Unavailable Unavailable MAJAK, R MARCO A DPM Unavailable Unavailable MAJAK, R MARCO A DPM Unavailable Unavailable MAJAK, R MARCO A DPM Unavailable Unavailable MAJAK, R MARCO A DPM Unavailable Unavailable MAJAK, R MARCO A DPM Unavailable Unavailable MAJAK, R MARCO A DPM Unavailable Unavailable MAJAK, R MARCO A DPM Unavailable Unavailable MAJAK, R MARCO A DPM Unavailable Unavailable MAJAK, R MARCO A DPM Unavailable Unavailable MAJAK, R MARCO A DPM Unavailable Unavailable MAJAK, R MARCO A DPM Unavailable Unavailable MAJAK, R MARCO A DPM Unavailable Unavailable MAJAK, R MARCO A DPM Unavailable Unavailable MAJAK, R MARCO A DPM Unavailable Unavailable MAJAK, R MARCO A DPM Unavailable Unavailable GARTH, R MARCO A DPM Unavailable Unavailable Kiran Ingram MD Unavailable Unavailable Kiran Ingram MD Unavailable Unavailable Kiran Ingram MD Unavailable Unavailable Kiran Ingram MD Unavailable Unavailable Kiran Ingram MD Unavailable Unavailable Kiran Ingram MD Unavailable Unavailable Kiran Ingram MD Unavailable Unavailable Kiran Ingram MD Unavailable Unavailable Kiran Ingram MD Unavailable Unavailable Kiran Ingram MD Unavailable Unavailable Kiran Ingram MD Unavailable Unavailable Robert ([facility] COVID), DO NOT EDIT Chencho ARRIAGA Unavail able Unavailable Carlos MOSLEY Unavailable Unavailable Black, Salvador Unavailable Black, Salvador Unavailable Black, Salvador Unavailable Black, Salvador Unavailable Black, Salvador Unavailable Black, Salvador Unavailable Black, Salvador Unavailable Black, Salvador Unavailable Black, Salvador Unavailable Black, Salvador Unavailable Black, Salvador Unavailable Black, Salvador Unavailable Black, Salvador Unavailable Black, Salvador Unavailable Black, Salvador Unavailable Black, Salvador Unavailable Black, Salvador Unavailable Black, Salvador Unavailable Black, Salvador Unavailable Black, Salvador Unavailable Black, Salvador Unavailable Black, Salvador Unavailable Black, Salvador Unavailable Black, Salvador Unavailable Black, Salvador Unavailable Black, Salvador Unavailable Black, Salvador Unavailable Black, Salvador Unavailable Black, Salvador Unavailable Black, Salvador Unavailable Black, Salvador Unavailable Vic Brennan AUTO BRAKE MECHANIC Unavailable Unavailable Vic Brennan AUTO BRAKE MECHANIC Unavailable Unavailable Douglas, W Lonnie AUTO BRAKE MECHANIC Unavailable Unavailable Mika, W Lonnie AUTO BRAKE MECHANIC Unavailable Unavailable Mika, W Lonnie AUTO BRAKE MECHANIC Unavailable Unavailable Mika, W Lonnie AUTO BRAKE MECHANIC Unavailable Unavailable Mika, W Lonnie AUTO BRAKE MECHANIC Unavailable Unavailable Douglas, W Lonnie AUTO BRAKE MECHANIC Unavailable Unavailable Douglas, W Lonnie AUTO BRAKE MECHANIC Unavailable Unavailable Mika, W Lonnie AUTO BRAKE MECHANIC Unavailable Unavailable Douglas, W Lonnie AUTO BRAKE MECHANIC Unavailable Unavailable Mika, W Lonnie AUTO BRAKE MECHANIC Unavailable Unavailable Mika, W Lonnie AUTO BRAKE MECHANIC Unavailable Unavailable Douglas, W Lonnie AUTO BRAKE MECHANIC Unavailable Unavailable Mika, W Lonnie AUTO BRAKE MECHANIC Unavailable Unavailable Douglas, W Lonnie AUTO BRAKE MECHANIC Unavailable Unavailable Mika, W Lonnie AUTO BRAKE MECHANIC Unavailable Unavailable Re-disclosure Warning The records that you are about to access may contain information from federally-assisted alcohol or drug abuse programs. If such information is present, then the following federally mandated warning applies: This information has been disclosed to you from records protected by federal confidentiality rules (42 CFR part 2). The federal rules prohibit you from making any further disclosure of this information unless further disclosure is expressly permitted by the written consent of the person to whom it pertains or as otherwise permitted by 42 CFR part 2. A general authorization for the release of medical or other information is NOT sufficient for this purpose. The Federal rules restrict any use of the information to criminally investigate or prosecute any alcohol or drug abuse patient.The records that you are about to access may contain highly sensitive health information, the redisclosure of which is protected by Article 27-F of the [facility] Public Health law. If you continue you may have access to information: Regarding HIV / AIDS; Provided by facilities licensed or operated by the [facility] Office of Mental Health; or Provided by the [facility] Office for People With Developmental Disabilities. If such information is present, then the following [facility] mandated warning applies: This information has been disclosed to you from confidential records which are protected by state law. State law prohibits you from making any further disclosure of this information without the specific written consent of the person to whom it pertains, or as otherwise permitted by law. Any unauthorized further disclosure in violation of state law may result in a fine or retirement sentence or both. A general authorization for the release of medical or other information is NOT sufficient authorization for further disc losure. Encounters Encounter Providers Location Date Indications Data Source(s ) Outpatient Attender: Lonnie Brennan NP 09:24:56 AM EDT - 01/17/2021 11:21:21 AM EDT [facility] ([facility]) Outpatient Attender: MARCO A LIANG [facility] Office 12/04 02:15:00 PM EDT [facility] ([facility] Outpatient Attender: Kiran Dixon/[place]/Rein dl 12/11/2020 11:00:00 AM EDT [facility] ([facility]) Outpatient Attender: Hoa ARENAS Attender: MONICA Sarmientoer: Hoa ARENAS 12/04/2020 12:00:00 AM EDT - 12/05/2020 12:00:00 AM EDT Encounter for screening for other viral diseases [facility] Encounter for screening for other viral diseases Outpatient Attender: Kiran Dixon/[place]/Rein dl 09/08/2020 08:00:00 AM EDT [facility] ([facility]) Outpatient Attender: Kiran Dixon/[place]/Rein dl 08/18/2020 09:30:00 AM EDT [facility] ([facility]) Outpatient Attender: MENDEZ PACHECO NP Physical Therapy 08:30:00 AM EDT [facility] ([facility]) Office Visit Attender: Kiran Dixon/Carlos/[place]augh[place]/Rein dl 08/11/2020 11:30:00 AM EDT [facility] ([facility]) Outpatient Attender: Kiran Dixon/[place]/Rein dl 08/06/2020 09:00:00 AM EDT [facility] ([facility]) Outpatient [address] [address] 05/05/2020 12:00:00 AM EST [facility] Outpatient Attender: Salvador BlackAttender: SALVADOR BREEN MD ER-RAD 05/02/2020 01:46:00 PM EST [facility] Outpatient Attender: Kip Pelayo MD Main Office 05/01/2020 08:00:00 AM EST [facility] ([facility]) Outpatient Attender: MENDEZ PACHECO NP Physical Therapy 09:45:00 AM EST [facility] ([facility]) Outpatient Attender: Chencho Jones ([facility]) 04/08/2020 11:18:00 AM EST Covid Testing [facility] Covid Testing Outpatient Attender: MENDEZ PACHECO NP Physical Therapy 09:45:00 AM EST [facility] ([facility]) Outpatient Attender: MENDEZ PACHECO NP Physical Therapy 10:30:00 AM EDT [facility] ([facility]) Immunizations Vaccine Date Status Description Data Source(s) COVID-19 VACCINE Pfizer 07/20/2020 12:00:00 AM EDT completed [facility] Vaccine Series Complete: YESThis Data wa s Submitted to [facility] Via [employer]. COVID-19 VACCINE Pfizer 06/29/2020 12:00:00 AM EDT completed [facility] Vaccine Series Complete: NOThis Data was Submitted to [facility] [employer]. Medications Medication Brand Name Start Date Product Form Dose Route Admi nistrative Instructions Pharmacy Instructions Status Indications Reaction Description Data Source(s) Hydrocortisone 10 MG/ML / Neomycin 3.5 M G/ML / Polymyxin B 43486 UNT/ML Otic Solution Ggitqpkh-Iaaujvcab-VR 12/30/2020 12:00:00 AM EDT active [facility] ([facility] Levothyroxine Sodium 0.1 MG Oral Tablet [Synthroid] Synthroi d 08/14/2020 12:00:00 AM EDT ORAL active M EDENT ([facility]) Hydrocortisone 25 MG/ML Topical Cream [employer] 05/09/2020 12:00:00 AM EST active [facility] ( [facility]) Fluticasone Propionate 50 MCG/ACT Fluticasone Propionate 50 MCG/ACT 05/05/2020 12:00:00 AM EST 2.0 {spray_in_each_nostril} acti ve Fluticasone Propionate 50 MCG/ACT eCW1 ([facility]) Levofloxacin 750 MG Oral Tablet Levofloxacin 750 MG 05/05/2020 1 2:00:00 AM EST 1.0 {tablet} active Levofloxaci n 750 MG eCW1 ([facility]) Suprep Bowel Prep Kit Suprep Bowel Prep Kit 05/01/2020 12:00:00 AM EST active [facility] ([facility]) Phentermine Hydrochloride 30 MG Oral Capsule Phentermine HCL 03/19/2020 12:00:00 AM EST ORAL completed [facility] ([facility] ) Levothyroxine Sodium 0.125 MG Oral Tablet [Synthroid] Synthr oid 01/31/2020 12:00:00 AM EDT ORAL active M [facility]ENT ([facility]) Phentermine Hydrochloride 30 MG Oral Capsule Phentermine HCL 08/15/2019 12:00:00 AM EDT ORAL completed [facility] ([facility]) Insurance Providers Payer name Policy type / Coverage type Policy ID Covered republican ID Covered republican's relationship to brand Policy Brand Plan Information [facility] ACTIVE DUTY [id number] U [id number] Self [id number] U [id number] Self [id number] COVID19 ONLY SELF PAY U [id number] Self [id number] 100 RPR- Needs Payer Match [id number] Self [id number] / [id number] Self [id number] [facility] ACTIVE DUTY [id number] [facility] [id number] S [id number] Problems, Conditions, and Diagnoses Code Display Name Description Problem Type Effective Dates Data Source(s) Z11.59 Encounter for screening for other viral diseases Encounter for screening for other viral diseases Diagnosis 12/04/2020 01:33:38 PM [facility] J32.9 Chronic sinusitis, unspecified CHRONIC SINUSITIS, UNSP ECIFIED Diagnosis 05/02/2020 01:46:00 PM [facility] J32.0 Chronic maxillary sinusitis CHRONIC MAXILLARY SINUSITI S Diagnosis 05/02/2020 01:46:00 PM [facility] R51 Headache R51 - Headache Diagnosis 04/08/2020 11:18:00 A M [facility] R05 Cough R05 - Cough Diagnosis 04/08/2020 11:18:00 AM E [facility] R09.81 Nasal congestion R09.81 - Nasal congestion Diagnosis 04/08/2020 11:18:00 AM [facility] Z11.59 Encounter for screening for other viral diseases Z11.59 - Encounter for screening for other viral diseases Diagnosis 04/08/2020 11:18:[address] [facility] Z20.828 Contact with and (suspected) exposure to other viral communicable diseases Z20.828 - Contact with and (suspected) e xposure to other viral communicable diseases Diagnosis 04/08/2020 11:18:00 AM [facility] M79.674 Pain in limb Pain in limb Problem 12/29/2020 12:00:00 A M EDT [facility] ([facility] L60.0 Ingrowing nail Ingrowing nail Problem 12/29/2020 12:00: 00 AM EDT [facility] ([facility] [id number] Screening for malignant neoplasm of colo n Screening for malignant neoplasm of colon Problem 05/01/2020 12:00:00 AM EST [facility] ([facility]) Surgeries/Procedures Procedure Description Date Indications Data Source(s) EXCISION NAIL MATRIX PERMANENT REMOVAL 12/30/2020 12:0 0:00 AM EDT [facility] ([facility] OFFICE OUTPATIENT NEW 30 MINUTES 12/24/2020 12:00:00 A M EDT [facility] OFFICE OUTPATIENT VISIT 15 MINUTES 12/11/2020 12:00:00 AM EDT [facility] ([facility] ) OFFICE OUTPATIENT VISIT 15 MINUTES 09/08/2020 12:00:00 AM EDT [facility] ([facility], ) OFFICE OUTPATIENT VISIT 15 MINUTES 08/18/2020 12:00:00 AM EDT [facility] ([facility], ) OFFICE OUTPATIENT VISIT 25 MINUTES 08/14/2020 12:00:00 AM EDT [facility] ([facility]) DBRDMT FX&/DISLC SUBQ T/M/F BONE 08/06/2020 12:00:00 A M EDT [facility] ([facility]) REPAIR NAIL BED 08/06/2020 12:00:00 AM EDT [facility] ([facility]) OFFICE OUTPATIENT NEW 45 MINUTES 08/06/2020 12:00:00 A M EDT [facility] ([facility]) COLONOSCOPY FLX DX W/WO COLLJ SPECIMENS 05/09/2020 12: 00:00 AM EST [facility] ([facility]) Results ID Date Data Source [id number] 01/09/2021 12:00:00 AM EDT [facility] Name Value Range Interpretation Code Description Data Yanique rce(s) Supporting Document(s) NAAT NEGATIVE [facility] This lab was ordered by [facility] and reported by [facility]. ID Date Data Source [id number] 12/04/2020 01:35:00 PM EDT [facility] Name Value Range Interpretation Code Description Data Yanique rce(s) Supporting Document(s) SARS-CoV-2 RNA 2019 nCoV Real-Time RT-PCR: NOT DETECTED [facility] This lab was ordered by [facility] and reported by [facility]. ID Date Data Source [id number] 12/05/2020 06:20:02 AM EDT [facility] Name Value Range Interpretation Code Description Data Yanique rce(s) Supporting Document(s) Specimen source [Identifier] of Unspecified specimen [facility] SARS-CoV-2 RNA 2019 nCoV Real-Time RT-PCR: NOT DETECTED [facility] Assay Performed [facility] Patients first test for condition [facility] Patient employed in healthcare setting [facility] Patient has symptoms related to condition [facility] When did you start to experience these symptoms [Date and time] [Phen X] [facility] Patient was hospitalized because of this condition [facility] patient was admitted to ICU for [facility] Patient resides in a congregate care setting [facility] status [facility] ID Date Data Source [id number] 11/13/2020 08:30:00 AM EDT [facility] ([facility]) Name Value Range Interpretation Code Description Data Yanique rce(s) Supporting Document(s) Thyroid Stimulating Hormone 0.061 uIU/ML 0.358-3.740 [facility] ([facility]) Free T4 1.07 ng/dL 0.76-1.46 [facility] ([facility]) ID Date Data Source [id number] 08/06/2020 12:45:00 PM EDT [facility] Name Value Range Interpretation Code Description Data Yanique rce(s) Supporting Document(s) SARS coronavirus 2 RNA [Presence] in Res piratory specimen by VALENC[facility] with probe detection NEGATIVE [facility] This lab was ordered by [facility] a nd reported by [facility]. ID Date Data Source [id number] 05/05/2020 11:59:00 AM EST [facility] Name Value Range Interpretation Code Description Data Yanique rce(s) Supporting Document(s) SARS coronavirus 2 RNA Not Detected [facility] This lab was ordered by [facility] [place] [facility] and reported by [facility]. ID Date Data Source [id number] 05/02/2020 02:29:00 PM EST [facility] Exam Number: [id number] OF EXAMINATIO N: 05/02/2020 13:49 ESTCT FACIAL BONES/PNS W/OHISTORY: Chronic sinusitisTECHNIQUE:This CT exam was performed using the following dose reductiontechniques: automated exposure control, adjustment of mA and/or kVaccording to the patient size, and use of iterative reconstructiontechnique.High-resolution axial images were taken without contrastadministration and with coronal reformatting.FINDINGS:Frontal ethmoidal and sphenoid sinuses are clear. Mild mucoperiostealthickening of both maxillary sinuses is consistent with mild chronicbilateral maxillary sinusitis. Mastoidal air cells are well aerated.Nasal septum is midline in position. Ostiomeatal units are patent.IMPRESSION:Mild chronic bilateral maxillary sinusitisElectronically signed in PS360 by: Tony Puentes M.D. 114:17 EST Reported By: Quentin PUENTES M.D. Signed By: John PUENTES M.D. Name Value Range Interpretation Code Description Data Yanique rce(s) Supporting Document(s) ID Date Data Source [id number] 04/08/2020 11:20:00 AM EST [facility] Name Value Range Interpretation Code Description Data Yanique rce(s) Supporting Document(s) SARS-CoV-2 (COVID-19) RNA [Presence] in Respiratory specimen by VALENCIA with probe detection Undetected [facility] This lab was ordered by [facility] and reported by [facility]. ID Date Data Source [id number] 04/09/2020 05:52:00 PM EST [facility] Anterior NareCongestion;Cough;Headache;E xposureScreening Z20.828 Z11.59 R09.81 R05 R51 [id number] Name Value Range Interpretation Code Description Data Yanique rce(s) Supporting Document(s) SARS Coronavirus-2, PCR Undetected Undetected [facility] Negative results do not preclude SARS-Co V-2 infection andshould not be used as the sole basis for patient managementdecisions.The Tetracore RT-PCR COVID-19 assay has been internallyvalidated for saliva and pooled upper respiratory specimens.Source: Anterior Nare ID Date Data Source [id number] 03/19/2020 12:00:00 AM EST [facility] Name Value Range Interpretation Code Description Data Yanique rce(s) Supporting Document(s) SARS-CoV-2 Ag [Presence] in Respiratory specimen by VALENCIA with probe detection [facility] This lab was ordered by [facility] and reported by [facility]. Procedure Social History Code Duration Value Status Description Data Source(s ) Smoking 09/08/2020 12:00:00 AM EDT Patient has never smoked co mpleted Patient has never smoked MEDENT ([facility], ) Smoking 05/05/2020 12:00:00 AM EST Never Smoker completed Never S moker eCW1 ([facility]) Vital Signs ID Date Data Source UNK Name Value Range Interpretation Code Description Data Source(s) Diastolic blood pressure 86 mm[Hg] 86 mm[Hg] MEDENT ([facility] Systolic blood pressure 140 mm[Hg] 140 mm[Hg] M EDENT ([facility] Body height 72 [in_i] 72 [in_i] MEDENT ([facility] 6'0" Body weight 265.00 [lb_av] 265.00 [lb_av] MEDEN T ([facility] Heart rate 105 /min 105 /min MEDENT ([facility] Body mass index (BMI) [Ratio] 35.9 kg/m2 35.9 k g/m2 MEDENT ([facility] Body weight 240.00 [lb_av] 240.00 [lb_av] MEDEN T ([facility]) [place] body weight 178 [lb_av] 178 [lb_av] MEDEN T ([facility]) Body weight 108.864 kg 108.864 kg MEDENT ([facility]) Body surface area Derived from formula 2.30 m2 2.30 m2 [facility] ([facility]) Body mass index (BMI) [Ratio] 32.5 kg/m2 32.5 k g/m2 MEDENT ([facility]) Body temperature 97.8 [degF] 97.8 [degF] [facility] ([facility]) Body height 72 [in_i] 72 [in_i] MEDENT ([facility]) 6'0" Body weight 240.00 [lb_av] 240.00 [lb_av] MEDEN T ([facility]) Body mass index (BMI) [Ratio] 32.5 kg/m2 32.5 k g/m2 MEDENT ([facility]) [place] body weight 178 [lb_av] 178 [lb_av] MEDEN T ([facility]) Body weight 108.864 kg 108.864 kg MEDENT ([facility]) Body surface area Derived from formula 2.30 m2 2.30 m2 MEDENT ([facility]) Body temperature 97.8 [degF] 97.8 [degF] MEDENT ([facility], ) Body height 72 [in_i] 72 [in_i] [facility] ([facility]) 6'0" Oxygen saturation in Arterial blood by Pulse oximetry 95 % 95 % [facility] ([facility]) Systolic blood pressure 118 mm[Hg] 118 mm[Hg] M EDENT ([facility], ) Respiratory rate 16 /min 16 /min [facility] ( [facility]) Body temperature 98.7 [degF] 98.7 [degF] [facility] Body temperature 98.7 [degF] 98.7 [degF] [facility] ([facility], ) Respiratory rate 16 /min 16 /min [facility] ( [facility]) Body height 72 [in_i] 72 [in_i] [facility] ([facility]) 6'0" [place] body weight 178 [lb_av] 178 [lb_av] MEDEN T ([facility], ) Diastolic blood pressure 84 mm[Hg] 84 mm[Hg] [facility] ([facility]) Heart rate 84 /min 84 /min [facility] ([facility], ) Oxygen saturation in Arterial blood by Pulse oximetry 95 % 95 % [facility] ([facility], ) Body height 72 [in_i] 72 [in_i] [facility] ([facility], ) 6'0" [place] body weight 178 [lb_av] 178 [lb_av] MEDEN T ([facility], ) Systolic blood pressure 124 mm[Hg] 124 mm[Hg] M EDENT ([facility]) Diastolic blood pressure 84 mm[Hg] 84 mm[Hg] MEDENT ([facility]) Heart rate 90 /min 90 /min [facility] ([facility]) Body temperature 97.2 [degF] 97.2 [degF] MEDENT ([facility]) Oxygen saturation in Arterial blood by Pulse oximetry 99 % 99 % [facility] ([facility]) Body height 71 [in_i] 71 [in_i] MEDENT ([facility]) 5'11" Body weight 259.44 [lb_av] 259.44 [lb_av] MEDEN T ([facility]) Body mass index (BMI) [Ratio] 36.2 kg/m2 36.2 k g/m2 [facility] ([facility]) Systolic blood pressure 128 mm[Hg] 128 mm[Hg] [facility] Oxygen saturation in Arterial blood by Pulse oximetry 100 % 100 % [facility] ([facility]) Respiratory rate 16 /min 16 /min [facility] ( [facility]) Body temperature 97.9 [degF] 97.9 [degF] [facility] ([facility]) Body height 72 [in_i] 72 [in_i] [facility] ([facility]) 6'0" Body weight 240.00 [lb_av] 240.00 [lb_av] MEDEN T ([facility]) Diastolic blood pressure 81 mm[Hg] 81 mm[Hg] [facility] ([facility]) Body mass index (BMI) [Ratio] 32.5 kg/m2 32.5 k g/m2 [facility] ([facility]) [place] body weight 178 [lb_av] 178 [lb_av] MEDEN T ([facility]) Body weight 108.864 kg 108.864 kg [facility] ([facility]) Body surface area Derived from formula 2.30 m2 2.30 m2 [facility] ([facility]) Heart rate 98 /min 98 /min [facility] ([facility]) Diastolic blood pressure 84 mm[Hg] 84 mm[Hg] [facility] ([facility]) Heart rate 100 /min 100 /min [facility] ([facility]) Oxygen saturation in Arterial blood by Pulse oximetry 97 % 97 % [facility] ([facility]) Respiratory rate 16 /min 16 /min [facility] ( [facility]) Systolic blood pressure 132 mm[Hg] 132 mm[Hg] [facility] Body temperature 97.6 [degF] 97.6 [degF] [facility] ([facility]) Body mass index (BMI) [Ratio] 32.5 kg/m2 32.5 k g/m2 MEDENT ([facility]) [place] body weight 178 [lb_av] 178 [lb_av] MEDEN T ([facility]) Body height 72 [in_i] 72 [in_i] [facility] ([facility]) 6'0" Body weight 240.00 [lb_av] 240.00 [lb_av] MEDEN T ([facility]) Body weight 108.864 kg 108.864 kg [facility] ([facility]) Body surface area Derived from formula 2.30 m2 2.30 m2 [facility] ([facility]) Body height 72 [in_i] 72 [in_i] eCW1 ([facility]) Body height 182.88 cm 182.88 cm eCW1 ([facility]) Body weight 252 [lb_av] 252 [lb_av] eCW1 ([facility]) Body weight 114.31 kg 114.31 kg eCW1 ([facility]) Body mass index (BMI) [Ratio] 34.17 kg/m2 34.17 kg/m2 eCW1 ([facility]) Body temperature 98.5 [degF] 98.5 [degF] eCW1 ( [facility]) Body mass index (BMI) [Ratio] 35.3 kg/m2 35.3 k g/m2 MEDENT ([facility]) Body weight 117.936 kg 117.936 kg [facility] Body height 72 [in_i] 72 [in_i] [facility]) 6'0" Body weight 260.00 [lb_av] 260.00 [lb_av] MEDEN T ([facility]) Systolic blood pressure 130 mm[Hg] 130 mm[Hg] M EDENT ([facility]) Diastolic blood pressure 86 mm[Hg] 86 mm[Hg] MEDENT ([facility]) Heart rate 101 /min 101 /min [facility]) Body temperature 98.2 [degF] 98.2 [degF] MEDENT ([facility]) Body height 71 [in_i] 71 [in_i] MEDENT ([facility] ) 5'11" Oxygen saturation in Arterial blood by Pulse oximetry 98 % 98 % MEDENT ([facility] ) Body mass index (BMI) [Ratio] 36.3 kg/m2 36.3 k g/m2 MEDENT ([facility] ) Systolic blood pressure 132 mm[Hg] 132 mm[Hg] M EDENT ([facility] ) Diastolic blood pressure 80 mm[Hg] 80 mm[Hg] MEDENT ([facility] ) Heart rate 112 /min 112 /min MED[facility] ([facility] ) Body temperature 97.1 [degF] 97.1 [degF] MEDENT ([facility] ) Body weight 260.00 [lb_av] 260.00 [lb_av] MEDEN T ([facility] ) Heart rate 86 /min 86 /min [facility] ([facility] ) Systolic blood pressure 125 mm[Hg] 125 mm[Hg] M EDENT ([facility] ) Body temperature 97.0 [degF] 97.0 [degF] MEDENT ([facility] ) Oxygen saturation in Arterial blood by Pulse oximetry 96 % 96 % MEDENT ([facility] ) Diastolic blood pressure 79 mm[Hg] 79 mm[Hg] MEDENT ([facility] ) Body mass index (BMI) [Ratio] 36.3 kg/m2 36.3 k g/m2 MEDENT ([facility] ) Body height 71 [in_i] 71 [in_i] MEDENT ([facility] ) 5'11" Body weight 260.00 [lb_av] 260.00 [lb_av] MEDEN T ([facility] ) Diastolic blood pressure 70 mm[Hg] 70 mm[Hg] MEDENT ([facility] ) Heart rate 90 /min 90 /min MED[facility] ([facility] ) Body temperature 97.5 [degF] 97.5 [degF] MEDENT ([facility] ) Body height 71 [in_i] 71 [in_i] MEDENT ([facility] ) 5'11" Body weight 255.38 [lb_av] 255.38 [lb_av] MEDEN T ([facility] ) Systolic blood pressure 114 mm[Hg] 114 mm[Hg] M EDENT ([facility]) Body mass index (BMI) [Ratio] 35.6 kg/m2 35.6 k g/m2 [facility] Oxygen saturation in Arterial blood by Pulse oximetry 98 % 98 % [facility] ([facility]) Patient Treatment Plan of Care Planned Activity Planned Date Details Description Data Source (s) Levofloxacin 750 MG Oral Tablet 05/05/2020 12:00:00 AM EST eCW1 ([facility]) Fluticasone Propionate 50 MCG/ACT 05/05/2020 12:00:00 AM EST eCW1 ([facility])
--- OUTSIDE RECORDS SUMMARY | 2021-03-05 20:07 | CCD | Continuity of Care Document ---
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 Role Phone Erika Ayoub AUTM [phone] Problems Description No Information Available Social History [...] kg/m2 Results Description No Information Available Procedures Description No Information Available Medical Devices Description No Information Available Encounters Description No Information Available Assessments Description No Information Available Plan of Treatment Future Appointment(s):* 12/30/2020 10:45 am - Tu Gonzalez DPM at [place] [facility] Functional Status Description No Information Available Mental Status Description No Information Available Referrals Refer to Reason for Referral Status Appt Date Tu Gonzalez DPM OPEN FX OF DISTAL PHALANX OF GREAT TOE/ OCCURE JULY 27, [address] [place] [phone]
[2021-03-05] MEDS ORDERED: PSEU-52 PO (20:10)
--- OUTSIDE RECORDS SUMMARY | 2021-03-05 22:27 | CCD ---
Author Author [facility] Organization [facility] Address Unknown Phone Unavailable Care Team Providers Care Quantitative Strategy Analyst Name Role Phone Lupe Pelayo MD Unavailable Unavailable Lupe Pelayo MD Unavailable Unavailable Lupe Pelayo MD Unavailable Unavailable Lupe Pelayo MD Unavailable Unavailable Lupe Pelayo MD Unavailable Unavailable Lupe Pelayo MD Unavailable Unavailable Lupe Pelayo MD Unavailable Unavailable Lupe Pelayo MD Unavailable Unavailable Lupe Pelayo MD Unavailable Unavailable Lupe Pelayo MD Unavailable Unavailable Luep Pelayo MD Unavailable Unavailable Lupe Pelayo MD [...] S Kip MD Unavailable Unavailable Ward, C Oha OWNER MANAGER Unavailable Unavailable Ward, C Hoa OWNER MANAGER Unavailable Unavailable Ward, C Hoa OWNER MANAGER Unavailable Unavailable Ward, C Hoa OWNER MANAGER Unavailable Unavailable Ward, C Hoa OWNER MANAGER Unavailable Unavailable Ward, C Hoa OWNER MANAGER Unavailable Unavailable Ward, C Hoa OWNER MANAGER Unavailable Unavailable Ward, C Hoa OWNER MANAGER Unavailable Unavailable Ward, C Hoa OWNER MANAGER Unavailable Unavailable Ward, C Hoa OWNER MANAGER Unavailable Unavailable Ward, C Hoa OWNER MANAGER Unavailable Unavailable Ward, C Oha OWNER MANAGER Unavailable Unavailable Ward, C Hoa OWNER MANAGER Unavailable Unavailable Ward, C Hoa OWNER MANAGER Unavailable Unavailable Ward, C Hoa OWNER MANAGER Unavailable Unavailable Ward, C Hoa OWNER MANAGER Unavailable Unavailable Ward, C Hoa OWNER MANAGER Unavailable Unavailable Ward, C Hoa OWNER MANAGER Unavailable Unavailable Ward, C Hoa OWNER MANAGER Unavailable Unavailable Ward, C Hoa OWNER MANAGER Unavailable Unavailable Ward, C Hoa OWNER MANAGER Unavailable Unavailable Ward, C Hoa OWNER MANAGER Unavailable Unavailable Ward, C Hoa OWNER MANAGER Unavailable Unavailable Ward, C Hoa OWNER MANAGER Unavailable Unavailable Ward, C Hoa OWNER MANAGER Unavailable Unavailable Ward, C Hoa OWNER MANAGER Unavailable Unavailable Ward, C Hoa OWNER MANAGER Unavailable Unavailable Ward, C Hoa OWNER MANAGER Unavailable Unavailable Ward, C Hoa OWNER MANAGER Unavailable Unavailable Ward, C Hoa OWNER MANAGER Unavailable Unavailable Nicolette BLACK MD Unavailable Unavailable JUNIOR, B MENDEZ ENTERPRISE RESOURCE PLANNER Unavailable Unavailable JUNIOR, B MENDEZ ENTERPRISE RESOURCE PLANNER Unavailable Unavailable JUNIOR, B MENDEZ ENTERPRISE RESOURCE PLANNER Unavailable Unavailable JUNIOR, B MENDEZ ENTERPRISE RESOURCE PLANNER Unavailable Unavailable JUNIOR, B MENDEZ ENTERPRISE RESOURCE PLANNER Unavailable Unavailable JUNIOR, B MENDEZ ENTERPRISE RESOURCE PLANNER Unavailable Unavailable JUNIOR, B MENDEZ ENTERPRISE RESOURCE PLANNER Unavailable Unavailable JUNIOR, B MENDEZ ENTERPRISE RESOURCE PLANNER Unavailable Unavailable JUNIOR, B MENDEZ ENTERPRISE RESOURCE PLANNER Unavailable Unavailable JUNIOR, B MENDEZ ENTERPRISE RESOURCE PLANNER Unavailable Unavailable JUNIOR, B MENDEZ ENTERPRISE RESOURCE PLANNER Unavailable Unavailable JUNIOR, B MENDEZ ENTERPRISE RESOURCE PLANNER Unavailable Unavailable JUNIOR, B MENDEZ ENTERPRISE RESOURCE PLANNER Unavailable Unavailable JUNIOR, B MENDEZ ENTERPRISE RESOURCE PLANNER Unavailable Unavailable JUNIOR, B MENDEZ ENTERPRISE RESOURCE PLANNER Unavailable Unavailable JUNIOR, B MENDEZ ENTERPRISE RESOURCE PLANNER Unavailable Unavailable JUNIOR, B MENDEZ ENTERPRISE RESOURCE PLANNER Unavailable Unavailable JUNIOR, B MENDEZ ENTERPRISE RESOURCE PLANNER Unavailable Unavailable JUNIOR, B MENDEZ ENTERPRISE RESOURCE PLANNER Unavailable Unavailable JUNIOR, B MENDEZ ENTERPRISE RESOURCE PLANNER Unavailable Unavailable JUNIOR, B MENDEZ ENTERPRISE RESOURCE PLANNER Unavailable Unavailable JUNIOR, B MENDEZ ENTERPRISE RESOURCE PLANNER Unavailable Unavailable JUNIOR, B MENDEZ ENTERPRISE RESOURCE PLANNER Unavailable Unavailable JUNIOR, B MENDEZ ENTERPRISE RESOURCE PLANNER Unavailable Unavailable JUNIOR, B MENDEZ ENTERPRISE RESOURCE PLANNER Unavailable Unavailable JUNIOR, B MENDEZ ENTERPRISE RESOURCE PLANNER Unavailable Unavailable JUNIOR, B MENDEZ ENTERPRISE RESOURCE PLANNER Unavailable Unavailable JUNIOR, B MENDEZ ENTERPRISE RESOURCE PLANNER Unavailable Unavailable JUNIOR, B MENDEZ ENTERPRISE RESOURCE PLANNER Unavailable Unavailable JUNIOR, B MENDEZ ENTERPRISE RESOURCE PLANNER Unavailable Unavailable JUNIOR, B MENDEZ ENTERPRISE RESOURCE PLANNER Unavailable Unavailable JUNIOR, B MENDEZ ENTERPRISE RESOURCE PLANNER Unavailable Unavailable JUNIOR, B MENDEZ ENTERPRISE RESOURCE PLANNER Unavailable Unavailable JUNIOR, B MENDEZ ENTERPRISE RESOURCE PLANNER Unavailable Unavailable JUNIOR, B MENDEZ ENTERPRISE RESOURCE PLANNER Unavailable Unavailable JUNIOR, B MENDEZ ENTERPRISE RESOURCE PLANNER Unavailable Unavailable JUNIOR, B MENDEZ ENTERPRISE RESOURCE PLANNER Unavailable Unavailable JUNIOR, B MENDEZ ENTERPRISE RESOURCE PLANNER Unavailable Unavailable JUNIOR, B MENDEZ ENTERPRISE RESOURCE PLANNER Unavailable Unavailable JUNIOR, B MENDEZ ENTERPRISE RESOURCE PLANNER Unavailable Unavailable JUNIOR, B MENDEZ ENTERPRISE RESOURCE PLANNER Unavailable Unavailable JUNIOR, B MENDEZ ENTERPRISE RESOURCE PLANNER Unavailable Unavailable JUNIOR, B MENDEZ ENTERPRISE RESOURCE PLANNER Unavailable Unavailable JUNIOR, B MENDEZ ENTERPRISE RESOURCE PLANNER Unavailable Unavailable JUNIOR, B MENDEZ ENTERPRISE RESOURCE PLANNER Unavailable Unavailable JUNIOR, B MENDEZ ENTERPRISE RESOURCE PLANNER Unavailable Unavailable JUNIOR, B MENDEZ ENTERPRISE RESOURCE PLANNER Unavailable Unavailable JUNIOR, B MENDEZ ENTERPRISE RESOURCE PLANNER Unavailable Unavailable JUNIOR, B MENDEZ ENTERPRISE RESOURCE PLANNER Unavailable Unavailable JUNIOR, B MENDEZ ENTERPRISE RESOURCE PLANNER Unavailable Unavailable JUNIOR, B MENDEZ ENTERPRISE RESOURCE PLANNER Unavailable Unavailable UJNIOR, B MENDEZ ENTERPRISE RESOURCE PLANNER Unavailable Unavailable JUNIOR, B MENDEZ ENTERPRISE RESOURCE PLANNER Unavailable Unavailable JUNIOR, B MENDEZ ENTERPRISE RESOURCE PLANNER Unavailable Unavailable JUNIOR, B MENDEZ ENTERPRISE RESOURCE PLANNER Unavailable Unavailable JUNIOR, B MENDEZ ENTERPRISE RESOURCE PLANNER Unavailable Unavailable JUNIOR, B MENDEZ ENTERPRISE RESOURCE PLANNER Unavailable Unavailable JUNIOR, B MENDEZ ENTERPRISE RESOURCE PLANNER Unavailable Unavailable JUNIOR, B MENDEZ ENTERPRISE RESOURCE PLANNER Unavailable Unavailable JUNIOR, B MENDEZ ENTERPRISE RESOURCE PLANNER Unavailable Unavailable JUNIOR, B MENDEZ ENTERPRISE RESOURCE PLANNER Unavailable Unavailable JUNIOR, B MENDEZ ENTERPRISE RESOURCE PLANNER Unavailable Unavailable MAJAK, R MARCO A DPM [...] MARCO A DPM Unavailable Unavailable MAJAK, R AMRCO A DPM Unavailable Unavailable MAJAK, R MARCO [...] Unavailable Kiran Ingram MD Unavailable Unavailable Robert ([facility] COVID), DO NOT EDIT Chencho ARRIAGA Unavail [...] Salvador Unavailable Black, Salvador Unavailable Vic Brennan ENTERPRISE RESOURCE PLANNER Unavailable Unavailable Vic Brennan ENTERPRISE RESOURCE PLANNER Unavailable Unavailable [place], W Lonnie ENTERPRISE RESOURCE PLANNER Unavailable Unavailable Mika, W Lonnie ENTERPRISE RESOURCE PLANNER Unavailable Unavailable Mika, W Lonnie ENTERPRISE RESOURCE PLANNER Unavailable Unavailable Mika, W Lonnie ENTERPRISE RESOURCE PLANNER Unavailable Unavailable Mika, W Lonnie ENTERPRISE RESOURCE PLANNER Unavailable Unavailable [place], W Lonnie ENTERPRISE RESOURCE PLANNER Unavailable Unavailable [place], W Lonnie ENTERPRISE RESOURCE PLANNER Unavailable Unavailable Mika, W Lonnie ENTERPRISE RESOURCE PLANNER Unavailable Unavailable [place], W Lonnie ENTERPRISE RESOURCE PLANNER Unavailable Unavailable Mika, W Lonnie ENTERPRISE RESOURCE PLANNER Unavailable Unavailable Mika, W Lonnie ENTERPRISE RESOURCE PLANNER Unavailable Unavailable [place], W Lonnie ENTERPRISE RESOURCE PLANNER Unavailable Unavailable Mika, W Lonnie ENTERPRISE RESOURCE PLANNER Unavailable Unavailable [place], W Lonnie ENTERPRISE RESOURCE PLANNER Unavailable Unavailable Mika, W Lonnie ENTERPRISE RESOURCE PLANNER Unavailable Unavailable Re-disclosure Warning The records that [...] is protected by Article 27-F of the [facility] Public Health law. If you continue you may have access to information: Regarding HIV / AIDS; Provided by facilities licensed or operated by the [facility] Office of Mental Health; or Provided by the [facility] Office for People With Developmental Disabilities. If such information is present, then the following [facility] mandated warning applies: This information has been [...] law may result in a fine or shelter sentence or both. A general authorization for the release of medical or other information is NOT sufficient authorization for further disc losure. Encounters Encounter Providers Location Date Indications Data Source(s ) Outpatient Attender: Lonnie Brennan NP 09:24:56 AM EDT - 01/17/2021 11:21:21 AM EDT [facility] ([facility]) Outpatient Attender: MARCO A LIANG [facility] Office 12/04 02:15:00 PM EDT [facility] ([facility] Outpatient Attender: Kiran Dixon/Mendon/Devaughn/Rein dl 12/11/2020 11:00:00 AM EDT [facility] ([facility]) Outpatient Attender: Hoa ARENAS Attender: MONICA Sarmientoer: Hoa ARENAS 12/04/2020 12:00:00 AM EDT - 12/05/2020 12:00:00 AM EDT Encounter for screening for other viral diseases [facility] Encounter for screening for other viral diseases Outpatient Attender: Kiran Dixon/Mendon/Devaughn/Rein dl 09/08/2020 08:00:00 AM EDT [facility] ([facility]) Outpatient Attender: Kiran Dixon/Mendon/Devaughn/Rein dl 08/18/2020 09:30:00 AM EDT [facility] ([facility]) Outpatient Attender: MENDEZ PACHECO NP Physical Therapy 08:30:00 AM EDT [facility] ([facility]) Office Visit Attender: Kiran Dixon/Carlos/Devaughn/Rein dl 08/11/2020 11:30:00 AM EDT [facility] ([facility]) Outpatient Attender: Kiran Dixon/Mendon/Devaughn/Rein dl 08/06/2020 09:00:00 AM EDT [facility] ([facility]) Outpatient [address] [address] 05/05/2020 12:00:00 AM EST [facility] Out[facility] Attender: Salvador BlackAttender: SALVADOR BREEN MD ER-RAD 05/02/2020 01:46:00 PM EST [facility] Outpatient Attender: Kip Pelayo MD Main Office 05/01/2020 08:00:00 AM EST [facility] ([facility]) Outpatient Attender: MENDEZ PACHECO NP Physical Therapy 09:45:00 AM EST [facility] ([facility]) Outpatient Attender: Chencho Jones ([facility]) 04/08/2020 11:18:00 AM EST Covid Testing [facility] Covid Testing Outpatient Attender: MENDEZ PACHECO NP Physical Therapy 09:45:00 AM EST [facility] ([facility]) Outpatient Attender: MENDEZ PACHECO NP Physical Therapy 10:30:00 AM EDT [facility] ([facility]) Immunizations Vaccine Date Status Description Data Source(s) COVID-19 VACCINE Pfizer 07/20/2020 12:00:00 AM EDT completed [facility] Vaccine Series Complete: YESThis Data wa s Submitted to [facility] Via [employer]. COVID-19 VACCINE Pfizer 06/29/2020 12:00:00 AM EDT completed [facility] Vaccine Series Complete: NOThis Data was Submitted to [facility] Via [employer]. Medications Medication Brand Name Start Date Product Form Dose Route Admi nistrative Instructions Pharmacy Instructions Status Indications Reaction Description Data Source(s) Hydrocortisone 10 MG/ML / Neomycin 3.5 M G/ML / Polymyxin B 43007 UNT/ML Otic Solution Nvxcofql-Clecacliw-PD 12/30/2020 12:00:00 AM EDT active [facility] ([facility] Levothyroxine Sodium 0.1 MG Oral Tablet [Synthroid] Synthroi d 08/14/2020 12:00:00 AM EDT ORAL active M EDENT ([facility]) Hydrocortisone 25 MG/ML Topical Cream [employer]-[facility] 05/09/2020 12:00:00 AM EST active [facility] ( [facility]) Fluticasone Propionate 50 MCG/ACT Fluticasone Propionate 50 MCG/ACT 05/05/2020 12:00:00 AM EST 2.0 {spray_in_each_nostril} acti ve Fluticasone Propionate 50 MCG/ACT eCW1 ([facility]) Levofloxacin 750 MG Oral Tablet Levofloxacin 750 MG 05/05/2020 1 2:00:00 AM EST 1.0 {tablet} active Levofloxaci n 750 MG eCW1 ([facility]) Suprep Bowel Prep Kit Suprep Bowel Prep Kit 05/01/2020 12:00:00 AM EST active [facility] ([facility]) Phentermine Hydrochloride 30 MG Oral Capsule Phentermine HCL 03/19/2020 12:00:00 AM EST ORAL completed [facility] ([facility] Levothyroxine Sodium 0.125 MG Oral Tablet [Synthroid] Synthr oid 01/31/2020 12:00:00 AM EDT ORAL active M EDENT ([facility]) Phentermine Hydrochloride 30 MG Oral Capsule Phentermine HCL 08/15/2019 12:00:00 AM EDT ORAL completed [facility] ([facility]) Insurance Providers Payer name Policy type / Coverage type Policy ID Covered green party ID Covered green party's relationship to brand Policy Brand Plan Information [facility] ACTIVE DUTY [id number] U [id number] Self [id number] U [id number] Self [id number] COVID19 ONLY SELF PAY U [id number] Self [id number] RPR- Needs Payer Match [id number] Self [id number] / [id number] Self [id number] [facility] ACTIVE DUTY [id number] [facility] [id number] S [id number] Problems, Conditions, and Diagnoses Code Display Name Description Problem Type Effective Dates Data Source(s) Z11.59 Encounter for screening for other viral diseases Encounter for screening for other viral diseases Diagnosis 12/04/2020 01:33:38 PM [facility] J32.9 Chronic sinusitis, unspecified CHRONIC SINUSITIS, UNSP ECIFIED Diagnosis 05/02/2020 01:46:00 PM [facility] J32.0 Chronic maxillary sinusitis CHRONIC MAXILLARY SINUSITI S Diagnosis 05/02/2020 01:46:00 PM [facility] R51 Headache R51 - Headache Diagnosis 04/08/2020 11:18:00 A M [facility] R05 Cough R05 - Cough Diagnosis 04/08/2020 11:18:00 AM E [facility] R09.81 Nasal congestion R09.81 - Nasal congestion Diagnosis 04/08/2020 11:18:00 AM [facility] Z11.59 Encounter for screening for other viral diseases Z11.59 - Encounter for screening for other viral diseases Diagnosis 04/08/2020 11:18:00 AM [facility] Z20.828 Contact with and (suspected) exposure to other viral communicable diseases Z20.828 - Contact with and (suspected) e xposure to other viral communicable diseases Diagnosis 04/08/2020 11:18:00 AM [facility] M79.674 Pain in limb Pain in limb Problem 12/29/2020 12:00:00 A M EDT [facility] ([facility] L60.0 Ingrowing nail Ingrowing nail Problem 12/29/2020 12:00: 00 AM EDT [facility] ([facility] [id number] Screening for malignant neoplasm of colo n Screening for malignant neoplasm of colon Problem 05/01/2020 12:00:00 AM EST [facility] ([facility]) Surgeries/Procedures Procedure Description Date Indications Data Source(s) EXCISION NAIL MATRIX PERMANENT REMOVAL 12/30/2020 12:0 0:00 AM EDT [facility] ([facility] OFFICE OUTPATIENT NEW 30 MINUTES 12/24/2020 12:00:00 A M EDT [facility] OFFICE OUTPATIENT VISIT 15 MINUTES 12/11/2020 12:00:00 AM EDT [facility] ([facility], ) OFFICE OUTPATIENT VISIT 15 MINUTES 09/08/2020 12:00:00 AM EDT [facility] ([facility], ) OFFICE OUTPATIENT VISIT 15 MINUTES 08/18/2020 12:00:00 AM EDT [facility] ([facility], ) OFFICE OUTPATIENT VISIT 25 MINUTES 08/14/2020 12:00:00 AM EDT [facility] ([facility]) DBRDMT FX&/DISLC SUBQ T/M/F BONE 08/06/2020 12:00:00 A M EDT [facility] ([facility]) REPAIR NAIL BED 08/06/2020 12:00:00 AM EDT [facility] ([facility]) OFFICE OUTPATIENT NEW 45 MINUTES 08/06/2020 12:00:00 A M EDT [facility] ([facility]) COLONOSCOPY FLX DX W/WO COLLJ SPECIMENS 05/09/2020 12: 00:00 AM EST [facility] ([facility]) Results ID Date Data Source [id number] 01/09/2021 12:00:00 AM EDT [facility] Name Value Range Interpretation Code Description Data Yanique rce(s) Supporting Document(s) NAAT NEGATIVE [facility] This lab was ordered by [facility] and reported by [facility]. ID Date Data Source [id number] 12/04/2020 01:35:00 PM EDT [facility] Name Value Range Interpretation Code Description Data Yanique rce(s) Supporting Document(s) SARS-CoV-2 RNA 2019 nCoV Real-Time RT-PCR: NOT DETECTED [facility] This lab was ordered by [facility] and reported by [facility]. 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 [facility] Patient has symptoms related to condition [facility] When did you start to experience these symptoms [Date and time] [Phen X] [facility] Patient was hospitalized because of this condition [facility] patient was admitted to ICU for [facility] Patient resides in a congregate care setting [facility] status [facility] ID Date Data Source [id number] 11/13/2020 08:30:00 AM EDT [facility] ([facility]) Name Value Range Interpretation Code Description Data Yanique rce(s) Supporting Document(s) Thyroid Stimulating Hormone 0.061 uIU/ML 0.358-3.740 [facility] ([facility]) Free T4 1.07 ng/dL 0.76-1.46 [facility] ([facility]) ID Date Data Source [id number] 08/06/2020 12:45:00 PM EDT [facility] Name Value Range Interpretation Code Description Data Yanique rce(s) Supporting Document(s) SARS coronavirus 2 RNA [Presence] in Res piratory specimen by [facility] with probe detection NEGATIVE [facility] This lab was ordered by [facility] a nd reported by [facility]. ID Date Data Source [id number] 05/05/2020 11:59:00 AM EST [facility] Name Value Range Interpretation Code Description Data Yanique rce(s) Supporting Document(s) SARS coronavirus 2 RNA Not Detected [facility] This lab was ordered by [facility] and reported by [facility]. ID Date Data Source [id number] 05/02/2020 02:29:00 PM EST [facility] Exam Number: [id number] OF EXAMINATIO N: 05/02/2020 13:49 ESTCT FACIAL [...] rce(s) Supporting Document(s) ID Date Data Source [id number] 04/08/2020 11:20:00 AM EST [facility] Name Value Range Interpretation Code Description Data Yanique rce(s) Supporting Document(s) SARS-CoV-2 (COVID-19) RNA [Presence] in Respiratory specimen by VALENCIA with probe detection Undetected [facility] This lab was ordered by [facility] and reported by [facility]. ID Date Data Source [id number] 04/09/2020 05:52:00 PM EST [facility] Anterior NareCongestion;Cough;Headache;E xposureScreening Z20.828 Z11.59 R09.81 R05 R51 [id number] Name Value Range Interpretation Code Description Data Yanique rce(s) Supporting Document(s) SARS Coronavirus-2, PCR Undetected Undetected [facility] Negative results do not preclude SARS-Co V-2 infection andshould not be used as the sole basis for patient managementdecisions.The [employer] RT-PCR COVID-19 assay has been internallyvalidated for saliva and pooled upper respiratory specimens.Source: Anterior Nare ID Date Data Source [id number] 03/19/2020 12:00:00 AM EST [facility] Name Value Range Interpretation Code Description Data Yanique rce(s) Supporting Document(s) SARS-CoV-2 Ag [Presence] in Respiratory specimen by VALENCIA with probe detection [facility] This lab was ordered by [facility] and reported by [facility]. Procedure Social History Code Duration Value Status Description Data Source(s ) Smoking 09/08/2020 12:00:00 AM EDT Patient has never smoked co mpleted Patient has never smoked [facility] ([facility], ) Smoking 05/05/2020 12:00:00 AM EST Never Smoker completed Never S moker eCW1 ([facility]) Vital Signs ID Date Data Source UNK Name Value Range Interpretation Code Description Data Source(s) Diastolic blood pressure 86 mm[Hg] 86 mm[Hg] [facility] ([facility] Systolic blood pressure 140 mm[Hg] 140 mm[Hg] M EDENT ([facility] Body height 72 [in_i] 72 [in_i] [facility] ([facility] 6'0" Body weight 265.00 [lb_av] 265.00 [lb_av] MEDEN T ([facility] Heart rate 105 /min 105 /min [facility] ([facility] Body mass index (BMI) [Ratio] 35.9 kg/m2 35.9 k g/m2 [facility] ([facility] Body weight 240.00 [lb_av] 240.00 [lb_av] MEDEN T ([facility]) Body mass index (BMI) [Ratio] 32.5 kg/m2 32.5 k g/m2 [facility] ([facility]) [place] body weight 178 [lb_av] 178 [lb_av] MEDEN T ([facility]) Body weight 108.864 kg 108.864 kg [facility] ([facility]) Body surface area Derived from formula 2.30 m2 2.30 m2 [facility] ([facility]) Body temperature 97.8 [degF] 97.8 [degF] [facility] ([facility]) Body height 72 [in_i] 72 [in_i] [facility] ([facility]) 6'0" Body temperature 97.8 [degF] 97.8 [degF] [facility] ([facility]) Body height 72 [in_i] 72 [in_i] [facility] ([facility]) 6'0" Body weight 240.00 [lb_av] 240.00 [lb_av] MEDEN T ([facility]) Body mass index (BMI) [Ratio] 32.5 kg/m2 32.5 k g/m2 [facility] ([facility]) [place] body weight 178 [lb_av] 178 [lb_av] MEDEN T ([facility]) Body weight 108.864 kg 108.864 kg [facility] ([facility]) Body surface area Derived from formula 2.30 m2 2.30 m2 [facility] ([facility]) Oxygen saturation in Arterial blood by Pulse oximetry 95 % 95 % [facility] ([facility]) Respiratory rate 16 /min 16 /min [facility] ( [facility]) Body temperature 98.7 [degF] 98.7 [degF] [facility] ([facility]) Respiratory rate 16 /min 16 /min [facility] ( [facility]) Systolic blood pressure 118 mm[Hg] 118 mm[Hg] M EDENT ([facility]) Body temperature 98.7 [degF] 98.7 [degF] [facility] ([facility]) [place] body weight 178 [lb_av] 178 [lb_av] MED[facility] T ([facility]) Body height 72 [in_i] 72 [in_i] [facility] ([facility]) 6'0" Diastolic blood pressure 84 mm[Hg] 84 mm[Hg] [facility] ([facility]) Heart rate 84 /min 84 /min [facility] ([facility]) Oxygen saturation in Arterial blood by Pulse oximetry 95 % 95 % [facility] ([facility]) Body height 72 [in_i] 72 [in_i] [facility] ([facility]) 6'0" [place] body weight 178 [lb_av] 178 [lb_av] MEDEN T ([facility]) Systolic blood pressure 124 mm[Hg] 124 mm[Hg] M EDENT ([facility]) Diastolic blood pressure 84 mm[Hg] 84 mm[Hg] [facility] ([facility]) Heart rate 90 /min 90 /min [facility] ([facility]) Body temperature 97.2 [degF] 97.2 [degF] [facility] ([facility]) Body height 71 [in_i] 71 [in_i] [facility] ([facility]) 5'11" Body weight 259.44 [lb_av] 259.44 [lb_av] MEDEN T ([facility]) Body mass index (BMI) [Ratio] 36.2 kg/m2 36.2 k g/m2 [facility] ([facility]) Oxygen saturation in Arterial blood by [facility]ulse oximetry 99 % [facility] % [facility] Oxygen saturation in Arterial blood by Pulse oximetry 100 % 100 % [facility] ([facility]) Respiratory rate 16 /min 16 /min [facility] ( [facility]) Body temperature 97.9 [degF] 97.9 [degF] [facility] Body height 72 [in_i] 72 [in_i] [facility] ([facility]) 6'0" Systolic blood pressure 128 mm[Hg] 128 mm[Hg] M PENDING SALE TO [facility] ([facility]) Body weight 240.00 [lb_av] 240.00 [lb_av] [facility] ([facility]) Body mass index (BMI) [Ratio] 32.5 kg/m2 32.5 k g/m2 [facility] ([facility]) [place] body weight 178 [lb_av] 178 [lb_av] [facility] ([facility]) Diastolic blood pressure 81 mm[Hg] 81 mm[Hg] [facility] ([facility]) Body weight 108.864 kg 108.864 kg [facility] ([facility]) Heart rate 98 /min 98 /min [facility] ([facility]) Body surface area Derived from formula 2.30 m2 2.30 m2 [facility] ([facility]) Diastolic blood pressure 84 mm[Hg] 84 mm[Hg] [facility] ([facility]) Heart rate 100 /min 100 /min [facility] ([facility]) Oxygen saturation in Arterial blood by Pulse oximetry 97 % 97 % [facility] ([facility]) Respiratory rate 16 /min 16 /min [facility] ( [facility]) Body mass index (BMI) [Ratio] 32.5 kg/m2 32.5 k g/m2 [facility] ([facility]) Systolic blood pressure 132 mm[Hg] 132 mm[facility]Hg] [facility] [place] body weight 178 [lb_av] 178 [lb_av] [facility] ([facility]) Body temperature 97.6 [degF] 97.6 [degF] [facility] ([facility]) Body height 72 [in_i] 72 [in_i] [facility] ([facility]) 6'0" Body weight 240.00 [lb_av] 240.00 [lb_av] [facility] ([facility]) Body weight 108.864 kg 108.864 kg [facility] ([facility]) Body surface area Derived from formula 2.30 m2 2.30 m2 [facility] ([facility]) Body height 72 [in_i] 72 [in_i] eCW1 ([facility]) Body height 182.88 cm 182.88 cm eCW1 ([facility]) Body weight 252 [lb_av] 252 [lb_av] eCW1 ([facility]) Body weight 114.31 kg 114.31 kg eCW1 ([facility]) Body mass index (BMI) [Ratio] 34.17 kg/m2 34.17 kg/m2 eCW1 ([facility]) Body temperature 98.5 [degF] 98.5 [degF] eCW1 ( [facility]) Body mass index (BMI) [Ratio] 35.3 kg/m2 35.3 k g/m2 [facility] ([facility]) Diastolic blood pressure 86 mm[Hg] 86 mm[Hg] [facility] ([facility]) Heart rate 101 /min 101 /min [facility]) Body weight 117.936 kg 117.936 kg [facility] Body height 72 [in_i] 72 [in_i] [facility] 6'0" Body weight 260.00 [lb_av] 260.00 [lb_av] [facility] ([facility]) Systolic blood pressure 130 mm[Hg] 130 mm[Hg] M [facility] ([facility]) Body temperature 98.2 [degF] 98.2 [degF] [facility] ([facility]) Body height 71 [in_i] 71 [in_i] [facility] ([facility] ) 5'11" Oxygen saturation in Arterial blood by Pulse oximetry 98 % 98 % [facility] ([facility] ) Systolic blood pressure 132 mm[Hg] 132 mm[Hg] M [facility] ([facility] ) Body mass index (BMI) [Ratio] 36.3 kg/m2 36.3 k g/m2 [facility] ([facility] ) Diastolic blood pressure 80 mm[Hg] 80 mm[Hg] [facility] ([facility] ) Heart rate 112 /min 112 /min [facility] ([facility] ) Body temperature 97.1 [degF] 97.1 [degF] [facility] ([facility] ) Body weight 260.00 [lb_av] 260.00 [lb_av] [facility] ([facility] ) Systolic blood pressure 125 mm[Hg] 125 mm[Hg] M [facility] ([facility] ) Diastolic blood pressure 79 mm[Hg] 79 mm[Hg] [facility] ([facility] ) Heart rate 86 /min 86 /min [facility] ([facility] ) Body mass index (BMI) [Ratio] 36.3 kg/m2 36.3 k g/m2 [facility] ([facility] ) Body temperature 97.0 [degF] 97.0 [degF] [facility] ([facility] ) Oxygen saturation in Arterial blood by Pulse oximetry 96 % 96 % [facility] ([facility] ) Body height 71 [in_i] 71 [in_i] [facility] ([facility] ) 5'11" Body weight 260.00 [lb_av] 260.00 [lb_av] [facility] ([facility] ) Diastolic blood pressure 70 mm[Hg] 70 mm[Hg] [facility] ([facility] ) Heart rate 90 /min 90 /min [facility] ([facility] ) Body temperature 97.5 [degF] 97.5 [degF] [facility] ([facility] ) Body height 71 [in_i] 71 [in_i] [facility] ([facility] ) 5'11" Body weight 255.38 [lb_av] 255.38 [lb_av] [facility] ([facility] ) Systolic blood pressure 114 mm[Hg] 114 mm[Hg] M [facility]ENT ([facility]) Body mass index (BMI) [Ratio] 35.6 kg/m2 35.6 k g[facility] Oxygen saturation in Arterial blood by Pulse oximetry 98 % 98 % [facility] ([facility]) Patient Treatment Plan of Care Planned Activity Planned Date Details Description Data Source (s) Levofloxacin 750 MG Oral Tablet 05/05/2020 12:00:00 AM EST eCW1 ([facility]) Fluticasone Propionate 50 MCG/ACT 05/05/2020 12:00:00 AM EST eCW1 ([facility])
== END 2021-03-05 23:00 | disposition left against medical advice (07) ==
LOC: M ED 19:59
DX: Z53.29 Procedure and treatment not carried out because of patient's decision for other reasons (principal)

== ENCOUNTER → 2021-05-20 | Outpatient (CLI) | payer OTHER ==
[~2021-05-20] MED LIST changes: -LEVO250T12 PO; +LEVO250T3 PO; +PSEU-52 PO
[2021-05-20 17:47] LABS: FREE T4 0.75 NG/DL (0.76-1.46); THYROID STIMULATING HORMONE 3.56 uIU/ML (0.358-3.740)
== END ==
LOC: M LAB 15:40 → M PLALAB 15:40
PROVIDERS: ATTEND Nurse Practitioner Family
DX: E06.3 Autoimmune thyroiditis (principal)